=== PATIENT | male | born 1950 | race Caucasian/White ===

== ENCOUNTER 2017-08-03 10:25 | Emergency (ER) | payer MEDICARE, OTHER ==
[~2017-08-03] VITALS: Ht 180.3 cm; Wt 113.5 kg
[~2017-08-03 10:25] MED LIST: ALLO300T2 PO; CORE25TA PO; DIAZ5 PO; METF1000 PO; METO25 PO; NAPR-576 PO; NOVO7030P2 SQ; OMEG100037 PO; PARO20 PO; PERC5TAB12 PO; SAW500CA6 PO
[2017-08-03 10:27] VITALS: BP 167/82; PULSE 86; RESP 16; TEMP 98.4; O2SAT 95
--- NOTE | 2017-08-03 11:18 | PD ---
HPI Chief Complaint: Abnormal Results Time Seen by Provider: 11:17 Travel History International Travel<30 days: No Contact w/Intl Traveler<30days: No Traveled to known affect area: No History of Present Illness HPI 67-year-old male presents to emergency department for evaluation. Patient states he has had epigastric abdominal pain, nausea, vomiting, decreased appetite over the last 3 days. He had lab work done last week and was told that he has "critically high liver enzymes." Patient has never been told that he has liver disease of any sort. Denies any recent illnesses, fever, or chills. Pain is an 8 out of 10. Denies any bowel or bladder changes. No chest pain or tightness. No difficulty breathing. No other symptoms to report. PFSH Past Medical History Cancer: No Cardiovascular Problems: Yes (IRREGULAR BEAT ) Diabetes: Yes Endocrine: Yes Gastrointestinal Disorders: No Genitourinary: No Hepatitis: No Hiatal Hernia: No Hypertension: Yes Immune Disorder: No Musculoskeletal: Yes (ARTHRITIS; HX BACK RECONSTRUCTION; GOUTY ARTHRITIS) Neurologic: No Psychiatric: Yes (ANXIETY) Respiratory: No Thyroid Disease: No Past Surgical History Abdominal Surgery: Yes (INCISED FOR LUMBAR SURGERIES LISTED BELOW ) AICD: No Body Medical Devices: 13 SCREWS; 2 RODS, AND 1 PLATE SPINE, BILATERAL LENS Cardiac Surgery: No Ear Surgery: No Eye Surgery: Yes (BILATERAL CATARACT EXTRACTION WITH LENS IMPLANT) Genitourinary Surgery: Yes (LITHOTRIPSY X 4 FOR KIDNEY STONES) Joint Replacement: No Neurologic Surgery: Yes (LUMBAR DISKECTOMY (5); SPINAL FUSION 2007) Oral Surgery: No Pacemaker: No Thoracic Surgery: No Other Surgery: Yes Social History Alcohol Use: No Tobacco Use: No Substance Use: No Allergies-Medications (Allergen,Severity, Reaction): Coded Allergies: No Known Allergies (Unverified Allergy, Unknown, 08/03/17) Reported Meds & Prescriptions Reported Meds & Active Scripts Active Zofran Odt (Ondansetron Odt) 4 Mg Tab 4 Mg SL Q8HR PRN Reported Atorvastatin (Atorvastatin Calcium) 10 Mg Tab 10 Mg PO HS Coq-10 (Coenzyme Q10 (Ubidecarenone)) 30 Mg Cap Novolin N Inj (Insulin Human NPH) 1,000 Unit/10 Ml Vial 0 SQ DIRECTED Sliding Scale As Directed. Novolin R Inj (Insulin Human Regular) 1,000 Unit/10 Ml Vial 0 SQ DIRECTED Sliding Scale As Directed. Metoprolol Tartrate 25 Mg Tab 25 Mg PO BID Fish Oil + D3 (Fish Oil-Cholecalciferol) 1,200-1,000 Mg-Unit Cap 1 Cap PO DAILY [place] ([place]) 450 Mg Cap 450 Mg PO DAILY Metformin (Metformin HCl) 1,000 Mg Tab 1,000 Mg PO BIDPC Carvedilol 25 Mg Tab 25 Mg BID Allopurinol 300 Mg Tab 300 Mg PO DAILY Review of Systems Except as stated in HPI: all other systems reviewed are Neg Physical Exam Narrative GENERAL: Well-nourished male patient in no acute distress SKIN: Focused skin assessment warm/dry. HEAD: Atraumatic. Normocephalic. EYES: Pupils equal and round. Slight scleral icterus. No injection or drainage. ENT: No nasal bleeding or discharge. Mucous membranes pink and moist. NECK: Trachea midline. No JVD. CARDIOVASCULAR: Regular rate and rhythm. No murmur appreciated. RESPIRATORY: No accessory muscle use. Diminished, likely due to girth,. Breath sounds equal bilaterally. GASTROINTESTINAL: Rotund, soft, epigastric tenderness.. Hepatic and splenic margins not palpable. MUSCULOSKELETAL: No obvious deformities. No clubbing. No cyanosis. No edema. NEUROLOGICAL: Awake and alert. No obvious cranial nerve deficits. Motor grossly within normal limits. Normal speech. PSYCHIATRIC: Appropriate mood and affect; insight and judgment normal. Data Data Last Documented VS Vital Signs Date Time Temp Pulse Resp B/P (MAP) Pulse Ox O2 Delivery O2 Flow Rate FiO2 08/03/17 16:07 87 153/85 (107) 98 08/03/17 11:31 Room Air 08/03/17 10:27 98.4 16 Orders Orders Complete Blood Count With Diff (08/03/17 11:22) Comprehensive Metabolic Panel (08/03/17 11:22) Lipase (08/03/17 11:22) Prothrombin Time / Inr (Pt) (08/03/17 11:22) Act Partial Throm Time (Ptt) (08/03/17 11:22) Urinalysis - C+S If Indicated (08/03/17 11:22) Ct Abd/Pel W Iv Contrast(Rout) (08/03/17 11:22) Iv Access Insert/Monitor (08/03/17 11:22) Ecg Monitoring (08/03/17 11:22) Oximetry (08/03/17 11:22) Ondansetron Inj (Zofran Inj) (08/03/17 11:30) Sodium Chlor 0.9% 1000 Ml Inj (Ns 1000 M (08/03/17 11:22) Sodium Chloride 0.9% Flush (Ns Flush) (08/03/17 11:30) Electrocardiogram (08/03/17 11:22) Ketorolac Inj (Toradol Inj) (08/03/17 11:30) Ckmb (Isoenzyme) Profile (08/03/17 11:22) Troponin I (08/03/17 11:22) CKMB (08/03/17 11:28) CKMB% (08/03/17 11:28) Iohexol 350 Inj (Omnipaque 350 Inj) (08/03/17 13:09) Ammonia (08/03/17 14:15) Ed Discharge Order (08/03/17 15:37) Labs Laboratory Tests Test 08/03/17 11:28 08/03/17 13:58 08/03/17 14:28 White Blood Count 6.0 TH/MM3 Red Blood Count 4.62 MIL/MM3 Hemoglobin 14.4 GM/DL Hematocrit 42.3 % Mean Corpuscular Volume 91.5 FL Mean Corpuscular Hemoglobin 31.2 PG Mean Corpuscular Hemoglobin Concent 34.1 % Red Cell Distribution Width 14.1 % Platelet Count 170 TH/MM3 Mean Platelet Volume 9.3 FL Neutrophils (%) (Auto) 73.5 % Lymphocytes (%) (Auto) 12.7 % Monocytes (%) (Auto) 9.9 % Eosinophils (%) (Auto) 3.7 % Basophils (%) (Auto) 0.2 % Neutrophils # (Auto) 4.4 TH/MM3 Lymphocytes # (Auto) 0.8 TH/MM3 Monocytes # (Auto) 0.6 TH/MM3 Eosinophils # (Auto) 0.2 TH/MM3 Basophils # (Auto) 0.0 TH/MM3 CBC Comment DIFF FINAL Differential Comment Prothrombin Time 11.0 SEC Prothromb Time International Ratio 1.1 RATIO Activated Partial Thromboplast Time 28.3 SEC Blood Urea Nitrogen 14 MG/DL Creatinine 1.19 MG/DL Random Glucose 207 MG/DL Total Protein 7.3 GM/DL Albumin 3.2 GM/DL Calcium Level 8.8 MG/DL Alkaline Phosphatase 223 U/L Aspartate Amino Transf (AST/SGOT) 155 U/L Alanine Aminotransferase (ALT/SGPT) 216 U/L Total Bilirubin 5.6 MG/DL Sodium Level 133 MEQ/L Potassium Level 4.0 MEQ/L Chloride Level 99 MEQ/L Carbon Dioxide Level 28.7 MEQ/L Anion Gap 5 MEQ/L Estimat Glomerular Filtration Rate 61 ML/MIN Total Creatine Kinase 166 U/L Creatine Kinase MB 1.5 NG/ML Troponin I LESS THAN 0.02 NG/ML Lipase 219 U/L Urine Color DARK-YELLOW Urine Turbidity CLEAR Urine pH 6.5 Urine Specific [place] 1.049 Urine Protein 30 mg/dL Urine Glucose (UA) 1000 mg/dL Urine Ketones TRACE mg/dL Urine Occult Blood NEG Urine Nitrite NEG Urine Bilirubin MOD Urine Urobilinogen 4.0 MG/DL Urine Leukocyte Esterase NEG Urine RBC 4 /hpf Urine WBC 3 /hpf Urine Squamous Epithelial Cells <1 /hpf Urine Bacteria RARE /hpf Microscopic Urinalysis Comment CULT NOT INDICATED Ammonia 17 MCMOL/L MDM Medical Decision Making Medical Screen Exam Complete: Yes Emergency Medical Condition: Yes Medical Record Reviewed: Yes Differential Diagnosis Oley cystitis versus pancreatitis versus hepatitis versus biliary colic Narrative Course 67-year-old male presents to emergency department for evaluation of elevated liver enzymes and abdominal pain. Patient appears without distress. His abdomen is rotund. He does have epigastric right upper quadrant tenderness to palpation. He has mild scleral icterus. He appears nontoxic. Laboratory Tests Test 08/03/17 11:28 08/03/17 13:58 08/03/17 14:28 White Blood Count 6.0 TH/MM3 Red Blood Count 4.62 MIL/MM3 Hemoglobin 14.4 GM/DL Hematocrit 42.3 % Mean Corpuscular Volume 91.5 FL Mean Corpuscular Hemoglobin 31.2 PG Mean Corpuscular Hemoglobin Concent 34.1 % Red Cell Distribution Width 14.1 % Platelet Count 170 TH/MM3 Mean Platelet Volume 9.3 FL Neutrophils (%) (Auto) 73.5 % Lymphocytes (%) (Auto) 12.7 % Monocytes (%) (Auto) 9.9 % Eosinophils (%) (Auto) 3.7 % Basophils (%) (Auto) 0.2 % Neutrophils # (Auto) 4.4 TH/MM3 Lymphocytes # (Auto) 0.8 TH/MM3 Monocytes # (Auto) 0.6 TH/MM3 Eosinophils # (Auto) 0.2 TH/MM3 Basophils # (Auto) 0.0 TH/MM3 CBC Comment DIFF FINAL Differential Comment Prothrombin Time 11.0 SEC Prothromb Time International Ratio 1.1 RATIO Activated Partial Thromboplast Time 28.3 SEC Blood Urea Nitrogen 14 MG/DL Creatinine 1.19 MG/DL Random Glucose 207 MG/DL Total Protein 7.3 GM/DL Albumin 3.2 GM/DL Calcium Level 8.8 MG/DL Alkaline Phosphatase 223 U/L Aspartate Amino Transf (AST/SGOT) 155 U/L Alanine Aminotransferase (ALT/SGPT) 216 U/L Total Bilirubin 5.6 MG/DL Sodium Level 133 MEQ/L Potassium Level 4.0 MEQ/L Chloride Level 99 MEQ/L Carbon Dioxide Level 28.7 MEQ/L Anion Gap 5 MEQ/L Estimat Glomerular Filtration Rate 61 ML/MIN Total Creatine Kinase 166 U/L Creatine Kinase MB 1.5 NG/ML Troponin I LESS THAN 0.02 NG/ML Lipase 219 U/L Urine Color DARK-YELLOW Urine Turbidity CLEAR Urine pH 6.5 Urine Specific [place] 1.049 Urine Protein 30 mg/dL Urine Glucose (UA) 1000 mg/dL Urine Ketones TRACE mg/dL Urine Occult Blood NEG Urine Nitrite NEG Urine Bilirubin MOD Urine Urobilinogen 4.0 MG/DL Urine Leukocyte Esterase NEG Urine RBC 4 /hpf Urine WBC 3 /hpf Urine Squamous Epithelial Cells <1 /hpf Urine Bacteria RARE /hpf Microscopic Urinalysis Comment CULT NOT INDICATED Ammonia 17 MCMOL/L Last Impressions Abdomen/Pelvis CT 08/03/17 1122 Signed Impressions: Service Date/Time: Thursday, August 03, 2017 13:05 - CONCLUSION: Previous surgeries as above. Prominent gallbladder possible small stone otherwise negative. Mp Emerson MD FACR Patient does have a transaminitis. Bilirubin is 5.6. CT imaging is reviewed. Discussed the patient and the findings with my attending who is also assess the patient. Patient will be discharged to follow-up with gastroenterology. He agrees to return immediately with any acute worsening of symptoms. Diagnosis Primary Impression: Transaminitis Additional Impression: Hyperbilirubinemia Referrals: Klaus Benton MD Primary Care Physician Patient Instructions: Abdominal Pain (ED), General Instructions Additional Instructions: Follow-up with your primary care provider Seek gastroenterology evaluation for further evaluation and your elevated liver enzymes Return immediately to the emergency department with any acute worsening of symptoms Med/Other Pt SpecificInfo: Prescription(s) given Scripts Ondansetron Odt (Zofran Odt) 4 Mg Tab 4 MG SL Q8HR Y for Nausea/Vomiting, #10 TAB 0 Refills Prov: Cherrie Cota 08/03/17 Disposition: 01 DISCHARGE HOME Condition: Stable Cherrie Cota Aug 03, 2017 11:18
[2017-08-03] MEDS ORDERED: SODIUM CHLOR 0.9% 1000 ML INJ 1,000 ML IV SCH (11:22)
[2017-08-03] MEDS ORDERED: ONDANSETRON HCL 4 MG/2 ML VIAL IVP ONE (11:30)
[2017-08-03] MEDS ORDERED: KETOROLAC TROMETHAMINE 30 MG/ML (IVP) VIAL IVP ONE (11:30)
[2017-08-03] MEDS ORDERED: SODIUM CHLORIDE 0.9% FLUSH 10 ML FLUSH IV FLUSH PRN (11:30)
[2017-08-03] MEDS ORDERED: NOVORP2 SQ (11:30)
[2017-08-03] MEDS ORDERED: NOVONP2 SQ (11:30)
[2017-08-03] MEDS ORDERED: FISHCAP4 PO (11:30)
[2017-08-03] MEDS ORDERED: ATOR10TA15 PO (11:30)
[2017-08-03] MEDS ORDERED: METF1000 PO (11:30)
[2017-08-03] MEDS ORDERED: METO25TA3 PO (11:30)
[2017-08-03] MEDS ORDERED: SAW450CA2 PO (11:30)
[2017-08-03] MEDS ORDERED: COQ-30CA2 (11:30)
[2017-08-03] MEDS ORDERED: CARV25TA (11:30)
[2017-08-03] MEDS ORDERED: ALLO300T2 PO (11:30)
[2017-08-03 11:31] VITALS: O2SAT 98
[2017-08-03 11:55] LABS: AUTOMATED NEUTROPHIL # 4.4 TH/MM3 (1.8-7.7); BASOPHIL % 0.2 % (0.0-2.0); EOSINOPHIL # 0.2 TH/MM3 (0-0.4); EOSINOPHIL % 3.7 % (0.0-4.0); HEMATOCRIT 42.3 % (39.0-51.0); HEMOGLOBIN 14.4 GM/DL (13.0-17.0); LYMPH % 12.7 % (9.0-44.0); LYMPHOCYTE # 0.8 TH/MM3 (1.0-4.8); MEAN CELL VOLUME 91.5 FL (80.0-100.0); MEAN CORPUSCULAR HEMOGLOBIN 31.2 PG (27.0-34.0); MEAN CORPUSCULAR HGB CONC 34.1 % (32.0-36.0); MEAN PLATELET VOLUME 9.3 FL (7.0-11.0); MONO % 9.9 % (0.0-8.0); MONOCYTE # 0.6 TH/MM3 (0-0.9); NEUT % 73.5 % (16.0-70.0); PLATELET COUNT 170 TH/MM3 (150-450); RED BLOOD COUNT 4.62 MIL/MM3 (4.50-5.90); RED CELL DISTRIBUTION WIDTH 14.1 % (11.6-17.2)
[2017-08-03 12:04] LABS: INTERNATIONAL NORMALIZED RATIO 1.1 RATIO
[2017-08-03 12:21] LABS: ALBUMIN 3.2 GM/DL (3.4-5.0); ALT (GPT) 216 U/L (12-78); AST (GOT) 155 U/L (15-37); BICARBONATE 28.7 MEQ/L (21.0-32.0); BLOOD UREA NITROGEN 14 MG/DL (7-18); CALCIUM 8.8 MG/DL (8.5-10.1); CHLORIDE 99 MEQ/L (98-107); CREATININE 1.19 MG/DL (0.60-1.30); GLOMERULAR FILTRATION RATE 61 ML/MIN (>89); GLUCOSE,RANDOM 207 MG/DL (74-106); SODIUM (NA) 133 MEQ/L (136-145)
[2017-08-03 12:24] LABS: ALKALINE PHOSPHATASE 223 U/L (45-117); TOTAL BILIRUBIN ADULT 5.6 MG/DL (0.2-1.0); TOTAL PROTEIN 7.3 GM/DL (6.4-8.2); TROPONIN I LESS THAN 0.02 NG/ML (0.02-0.05)
[2017-08-03] MEDS ORDERED: IOHEXOL 350 MG/ML 10 ML VIAL (for RAD DIAG) IVCONTRAST ONE (13:09)
--- NOTE | 2017-08-03 13:20 | RADRPT ---
EXAM DATE/TIME: 08/03/2017 13:05 [facility] COMPARISON: No previous studies available for comparison. INDICATIONS : Right upper quadrant pain for a few days. IV CONTRAST: 94 cc Omnipaque 350 (iohexol) IV ORAL CONTRAST: No oral contrast ingested. RADIATION DOSE: 14.74 CTDIvol (mGy) MEDICAL HISTORY : None SURGICAL HISTORY : Previous hernia surgery, spine fixation. ENCOUNTER: Initial ACUITY: 3 days PAIN SCALE: 3/10 LOCATION: Right upper quadrant TECHNIQUE: Volumetric scanning of the abdomen and pelvis was performed. Using automated exposure control and ad justment of the mA and/or kV according to patient size, radiation dose was kept as low as reasonably achievable to obtain optimal diagnostic quality images. DICOM format image data is available electro nically for review and comparison. FINDINGS: The lung base is are clear. Moderate coronary calcifications are noted with stent in the LAD. The liver is free of focal defects The gallbladder contains the small stone. No inflammatory change is evident The pancreas and spleen are unremarkable Adrenal glands appear normal There is mild perinephric stranding without stone or obstruction Pelvis are previous hernia surgery . Translumbar fixation seen in the lumbar spine Pelvis diverticuli are present sigmoid colon Bladder prostate and simple vesicles unremarkable There is notable adenopathy Patient also had what looks like it lymph node dissection as well. CONCLUSION: Previous surgeries as above. Prominent gallbladder possible small stone otherwise negative. Mp Emerson MD FACR on August 03, 2017 at 13:15 Board Certified Radiologist. This report was verified electronically.
--- NOTE | 2017-08-03 13:24 | PD ---
Physical Exam Date Seen by Provider: Aug 03, 2017 Narrative Patient presents with upper abdominal pain. He states that he has had outpatient labs which indicate problems with his liver. Data Data Last Documented VS Vital Signs Date Time Temp Pulse Resp B/P (MAP) Pulse Ox O2 Delivery O2 Flow Rate FiO2 08/03/17 11:31 98 Room Air 08/03/17 10:27 98.4 86 16 Orders Orders Complete Blood Count With Diff (08/03/17 11:22) Comprehensive Metabolic Panel (08/03/17 11:22) Lipase (08/03/17 11:22) Prothrombin Time / Inr (Pt) (08/03/17 11:22) Act Partial Throm Time (Ptt) (08/03/17 11:22) Urinalysis - C+S If Indicated (08/03/17 11:) Ct Abd/Pel W Iv Contrast(Rout) (08/03/17 11:22) Iv Access Insert/Monitor (08/03/17 11:22) Ecg Monitoring (08/03/17 11:22) Oximetry (08/03/17 11:22) Ondansetron Inj (Zofran Inj) (08/03/17 11:30) Sodium Chlor 0.9% 1000 Ml Inj (Ns 1000 M (08/03/17 11:22) Sodium Chloride 0.9% Flush (Ns Flush) (08/03/17 11:30) Electrocardiogram (08/03/17 11:22) Ketorolac Inj (Toradol Inj) (08/03/17 11:30) Ckmb (Isoenzyme) Profile (08/03/17 11:22) Troponin I (08/03/17 11:22) CKMB (08/03/17 11:28) CKMB% (08/03/17 11:28) Iohexol 350 Inj (Omnipaque 350 Inj) (08/03/17 13:09) Labs Laboratory Tests Test 08/03/17 11:28 White Blood Count 6.0 TH/MM3 Red Blood Count 4.62 MIL/MM3 Hemoglobin 14.4 GM/DL Hematocrit 42.3 % Mean Corpuscular Volume 91.5 FL Mean Corpuscular Hemoglobin 31.2 PG Mean Corpuscular Hemoglobin Concent 34.1 % Red Cell Distribution Width 14.1 % Platelet Count 170 TH/MM3 Mean Platelet Volume 9.3 FL Neutrophils (%) (Auto) 73.5 % Lymphocytes (%) (Auto) 12.7 % Monocytes (%) (Auto) 9.9 % Eosinophils (%) (Auto) 3.7 % Basophils (%) (Auto) 0.2 % Neutrophils # (Auto) 4.4 TH/MM3 Lymphocytes # (Auto) 0.8 TH/MM3 Monocytes # (Auto) 0.6 TH/MM3 Eosinophils # (Auto) 0.2 TH/MM3 Basophils # (Auto) 0.0 TH/MM3 CBC Comment DIFF FINAL Differential Comment Prothrombin Time 11.0 SEC Prothromb Time International Ratio 1.1 RATIO Activated Partial Thromboplast Time 28.3 SEC Blood Urea Nitrogen 14 MG/DL Creatinine 1.19 MG/DL Random Glucose 207 MG/DL Total Protein 7.3 GM/DL Albumin 3.2 GM/DL Calcium Level 8.8 MG/DL Alkaline Phosphatase 223 U/L Aspartate Amino Transf (AST/SGOT) 155 U/L Alanine Aminotransferase (ALT/SGPT) 216 U/L Total Bilirubin 5.6 MG/DL Sodium Level 133 MEQ/L Potassium Level 4.0 MEQ/L Chloride Level 99 MEQ/L Carbon Dioxide Level 28.7 MEQ/L Anion Gap 5 MEQ/L Estimat Glomerular Filtration Rate 61 ML/MIN Total Creatine Kinase 166 U/L Creatine Kinase MB 1.5 NG/ML Troponin I LESS THAN 0.02 NG/ML Lipase 219 U/L MDM Supervised Visit with ROSEMARY: Yes Narrative Course I, Dr. Suarez, have reviewed the advance practice practitioner's documentation and am in agreement, met with the patient face to face, made the diagnosis, and the medical decision making was done by me. *My assessment and Findings: The patient looks comfortable. His abdomen is soft. He does have right upper quadrant and epigastric tenderness. Please see Cherrie Cota NP's note for results of laboratory and radiographic evaluation, ED course, final diagnosis and disposition Marjorie Suarez MD Aug 03, 2017 13:24
[2017-08-03 14:40] LABS: BACTERIA, URINE RARE /hpf; BILIRUBIN, URINE MOD (NEG); BLOOD, URINE NEG (NEG); GLUCOSE,URINE 1000 mg/dL (NEG); KETONE, URINE TRACE mg/dL (NEG); NITRITE,URINE NEG (NEG); PH, URINE 6.5 (5.0-8.5); SQUAMOUS EPITHELIAL CELL URINE <1 /hpf (0-5); URINE COLOR DARK-YELLOW (YELLW/STRAW); URINE LEUKOCYTE ESTERASE NEG (NEG)
[2017-08-03] MEDS ORDERED: ZOFR4TAB3 SL (15:40)
[2017-08-03 16:07] VITALS: BP 153/85
--- NOTE | 2017-08-04 14:31 | EKG ---
Date Performed: 08/03/2017 Time Performed: 11:27:11 PTAGE: 67 years EKG: Sinus rhythm MINIMAL VOLTAGE CRITERIA FOR LVH, CONSIDER NORMAL VARIANT BORDERLINE ECG NO PREVIOUS TRACING DOCTOR: Owen Kilgore Interpretating Date/Time 08/04/2017 14:28:34
== END 2017-08-03 16:30 | disposition home or self-care (01) ==
LOC: NEPE 10:25
DX: R74.0 Nonspecific elevation of levels of transaminase and lactic acid dehydrogenase [LDH] (principal); E80.6 Other disorders of bilirubin metabolism; I10 Essential (primary) hypertension; M19.90 Unspecified osteoarthritis, unspecified site; M10.9 Gout, unspecified; E11.9 Type 2 diabetes mellitus without complications; Z79.4 Long term (current) use of insulin; Z79.84 Long term (current) use of oral hypoglycemic drugs; Z79.899 Other long term (current) drug therapy
CPT/HCPCS: 74177; 80053; 81001; 82140; 82550; 82552; 83690; 84484; 85025; 85610; 85730; 93005; 96361; 96374; 96375; 99284; J1885; J2405; J7030; Q9967

== ENCOUNTER 2017-08-05 10:59 | Inpatient (IN) | payer MEDICARE ==
[2017-08-05] VITALS (8 sets, daily range): BP systolic 126–165; BP diastolic 68–91; PULSE 65–76; RESP 16–18; TEMP 97.2–98.1; O2SAT 96–99
[~2017-08-05] VITALS: Ht 177.8 cm; Wt 111.2 kg
[~2017-08-05 10:59] MED LIST changes: +ATOR10TA15 PO; +CARV25TA; +COQ-30CA2; -CORE25TA PO; -DIAZ5 PO; +FISHCAP4 PO; -METO25 PO; +METO25TA3 PO; -NAPR-576 PO; -NOVO7030P2 SQ; +NOVONP2 SQ; +NOVORP2 SQ; -OMEG100037 PO; -PARO20 PO; -PERC5TAB12 PO; +SAW450CA2 PO; -SAW500CA6 PO; +ZOFR4TAB3 SL
[2017-08-05] MEDS ORDERED: SODIUM CHLOR 0.9% 1000 ML INJ 1,000 ML IV SCH (11:23)
[2017-08-05] MEDS ORDERED: MORPHINE SULFATE 4 MG/ML INJ IV PUSH ONE (11:30)
[2017-08-05] MEDS ORDERED: SODIUM CHLORIDE 0.9% FLUSH 10 ML FLUSH IV FLUSH PRN (11:30)
[2017-08-05] MEDS ORDERED: PIPERACIL-TAZO 3.375 GM PREMIX 50 ML IV ONE (11:30)
[2017-08-05] MEDS ORDERED: ONDANSETRON HCL 4 MG/2 ML VIAL IVP ONE (11:30)
--- NOTE | 2017-08-05 11:38 | PD ---
HPI Chief Complaint: Abdominal Pain Time Seen by Provider: 11:17 Travel History International Travel<30 days: No Contact w/Intl Traveler<30days: No Traveled to known affect area: No History of Present Illness HPI Patient is a 67-year-old male presenting to the emergency department for evaluation of abdominal pain. Patient reports the pain started Tuesday, he states that he feels itchy, nauseated, fatigued. He reports subjective fevers and his pain is currently a 3/10, worse with movement. Symptom severity is moderate, onset was gradual. Symptoms are exacerbated with food. Pain is reported as aching and throbbing. Patient was seen by his GI doctor this morning and sent to emergency department for obstructive jaundice with cholangitis. Pain is localized to the right upper quadrant. PFSH Past Medical History Cancer: No Cardiovascular Problems: Yes Diabetes: Yes Patient Takes Glucophage: No Endocrine: Yes Gastrointestinal Disorders: No Genitourinary: No Hepatitis: No Hiatal Hernia: No Hypertension: Yes Immune Disorder: No Musculoskeletal: Yes (ARTHRITIS; HX BACK RECONSTRUCTION; GOUTY ARTHRITIS) Neurologic: No Psychiatric: Yes (ANXIETY) Respiratory: No Thyroid Disease: No Past Surgical History Abdominal Surgery: Yes (INCISED FOR LUMBAR SURGERIES LISTED BELOW ) AICD: No Body Medical Devices: 13 SCREWS; 2 RODS, AND 1 PLATE SPINE, BILATERAL LENS Cardiac Surgery: No Ear Surgery: No Eye Surgery: Yes (BILATERAL CATARACT EXTRACTION WITH LENS IMPLANT) Genitourinary Surgery: Yes (LITHOTRIPSY X 4 FOR KIDNEY STONES) Joint Replacement: No Neurologic Surgery: Yes (LUMBAR DISKECTOMY (5); SPINAL FUSION 2007) Oral Surgery: No Pacemaker: No Thoracic Surgery: No Other Surgery: Yes Social History Alcohol Use: No Tobacco Use: No Substance Use: No Allergies-Medications (Allergen,Severity, Reaction): Coded Allergies: No Known Allergies (Unverified Allergy, Unknown, 08/05/17) Reported Meds & Prescriptions Reported Meds & Active Scripts Active Zofran Odt (Ondansetron Odt) 4 Mg Tab 4 Mg SL Q8HR PRN Reported Atorvastatin (Atorvastatin Calcium) 10 Mg Tab 10 Mg PO HS Coq-10 (Coenzyme Q10 (Ubidecarenone)) 30 Mg Cap Novolin N Inj (Insulin Human NPH) 1,000 Unit/10 Ml Vial 0 SQ DIRECTED Sliding Scale As Directed. Novolin R Inj (Insulin Human Regular) 1,000 Unit/10 Ml Vial 0 SQ DIRECTED Sliding Scale As Directed. Metoprolol Tartrate 25 Mg Tab 25 Mg PO BID Fish Oil + D3 (Fish Oil-Cholecalciferol) 1,200-1,000 Mg-Unit Cap 1 Cap PO DAILY Saw [place] (Sertrella Repens) 450 Mg Cap 450 Mg PO DAILY Metformin (Metformin HCl) 1,000 Mg Tab 1,000 Mg PO BIDPC Carvedilol 25 Mg Tab 25 Mg BID Allopurinol 300 Mg Tab 300 Mg PO DAILY Review of Systems Except as stated in HPI: all other systems reviewed are Neg General / Constitutional: Positive: Fever Cardiovascular: No: Chest Pain or Discomfort Respiratory: No: Shortness of Breath Gastrointestinal: Positive: Nausea, Abdominal Pain, Loss of Appetite, No: Vomiting, Changes in Bowel Habits Skin: Positive Itching, Positive Change in Pigmentation Neurologic: Positive: Weakness Physical Exam Narrative GENERAL: Overweight, well-developed, alert male. Presenting in no acute distress. SKIN: Warm and dry. Appears jaundiced HEAD: Atraumatic. Normocephalic. EYES: Pupils equal and round. + scleral icterus. No injection or drainage. Extraocular movements are intact. ENT: No nasal bleeding or discharge. Mucous membranes pink and moist. NECK: Trachea midline. No JVD. CARDIOVASCULAR: Regular rate and rhythm. RESPIRATORY: No accessory muscle use. Clear to auscultation. Breath sounds equal bilaterally. GASTROINTESTINAL: Abdomen soft, non-tender, nondistended. Hepatic and splenic margins not palpable. MUSCULOSKELETAL: Extremities without clubbing, cyanosis, or edema. No obvious deformities. NEUROLOGICAL: Awake and alert. No obvious cranial nerve deficits. Motor grossly within normal limits. Five out of 5 muscle strength in the arms and legs. Normal speech. PSYCHIATRIC: Appropriate mood and affect; insight and judgment normal. Data Data Last Documented VS Vital Signs Date Time Temp Pulse Resp B/P (MAP) Pulse Ox O2 Delivery O2 Flow Rate FiO2 08/05/17 11:40 97 Room Air 08/05/17 11:03 98.1 74 16 Orders Orders Complete Blood Count With Diff (08/05/17 11:23) Comprehensive Metabolic Panel (08/05/17 11:23) Lipase (08/05/17 11:23) Prothrombin Time / Inr (Pt) (08/05/17 11:23) Act Partial Throm Time (Ptt) (08/05/17 11:23) Urinalysis - C+S If Indicated (08/05/17 11:23) Us Abdomen Gallbladder (08/05/17 ) Iv Access Insert/Monitor (08/05/17 11:23) Ecg Monitoring (08/05/17 11:23) Oximetry (08/05/17 11:23) NPO (08/05/17 11:23) Morphine Inj (Morphine Inj) (08/05/17 11:30) Ondansetron Inj (Zofran Inj) (08/05/17 11:30) Sodium Chlor 0.9% 1000 Ml Inj (Ns 1000 M (08/05/17 11:23) Sodium Chloride 0.9% Flush (Ns Flush) (08/05/17 11:30) Gamma Gt (Ggt) (08/05/17 11:23) Piperacil-Tazo 3.375 Gm Premix (Zosyn 3. (08/05/17 11:30) Admit To Inpatient (08/05/17 ) Code Status (08/05/17 12:59) Vital Signs (Adult) Q4H (08/05/17 12:59) Activity Oob With Assistance (08/05/17 12:59) Sodium Chloride 0.9% Flush (Ns Flush) (08/05/17 13:00) Sodium Chloride 0.9% Flush (Ns Flush) (08/05/17 21:00) Acetaminophen (Tylenol) (08/05/17 13:00) Ondansetron Inj (Zofran Inj) (08/05/17 13:00) Comprehensive Metabolic Panel (08/06/17 06:00) Complete Blood Count With Diff (08/06/17 06:00) Chest, Single Ap (08/05/17 12:59) Electrocardiogram (08/05/17 12:59) Pt Request For Service (08/05/17 12:59) Scd Bilateral/Knee High NEETA.BID (08/05/17 12:59) Naloxone Inj (Narcan Inj) (08/05/17 13:00) Magnesium Hydroxide Liq (Milk Of Magnesi (08/05/17 13:00) Inpatient Certification (08/05/17 ) Consult General Surgery (08/05/17 ) Consult Gastroenterology (08/05/17 ) Mri Mrcp W & W/O Contrast (08/05/17 ) Ns + Kcl 20 Meq Inj (Ns + Kcl 20 Meq Inj (08/05/17 14:00) Dextrose 50% In [place] (Syr) Inj (D50w (Syr (08/05/17 13:15) Allopurinol (Zyloprim) (08/06/17 09:00) Carvedilol (Coreg) (08/05/17 21:00) Dextrose 50% In [place] (Syr) Inj (D50w (Syr (08/05/17 13:12) Lisinopril (Prinivil) (08/06/17 09:00) Pantoprazole Inj (Protonix Inj) (08/05/17 13:15) Diet Npo Except Meds (08/05/17 Lunch) (Hub Use Only)Inp Phy Cons/Ref (08/05/17 ) Admit Order (Ed Use Only) (08/05/17 13:19) Labs Laboratory Tests Test 08/05/17 11:37 White Blood Count 4.9 TH/MM3 Red Blood Count 4.63 MIL/MM3 Hemoglobin 14.6 GM/DL Hematocrit 41.8 % Mean Corpuscular Volume 90.4 FL Mean Corpuscular Hemoglobin 31.5 PG Mean Corpuscular Hemoglobin Concent 34.8 % Red Cell Distribution Width 13.9 % Platelet Count 189 TH/MM3 Mean Platelet Volume 9.1 FL Neutrophils (%) (Auto) 59.5 % Lymphocytes (%) (Auto) 23.9 % Monocytes (%) (Auto) 11.6 % Eosinophils (%) (Auto) 4.2 % Basophils (%) (Auto) 0.8 % Neutrophils # (Auto) 2.9 TH/MM3 Lymphocytes # (Auto) 1.2 TH/MM3 Monocytes # (Auto) 0.6 TH/MM3 Eosinophils # (Auto) 0.2 TH/MM3 Basophils # (Auto) 0.0 TH/MM3 CBC Comment DIFF FINAL Differential Comment Prothrombin Time 9.7 SEC Prothromb Time International Ratio 1.0 RATIO Activated Partial Thromboplast Time 27.3 SEC Blood Urea Nitrogen 13 MG/DL Creatinine 0.87 MG/DL Random Glucose 111 MG/DL Total Protein 7.0 GM/DL Albumin 2.9 GM/DL Calcium Level 9.0 MG/DL Alkaline Phosphatase 251 U/L Aspartate Amino Transf (AST/SGOT) 75 U/L Alanine Aminotransferase (ALT/SGPT) 113 U/L Gamma Glutamyl Transpeptidase 1325 U/L Total Bilirubin 4.3 MG/DL Sodium Level 135 MEQ/L Potassium Level 3.9 MEQ/L Chloride Level 102 MEQ/L Carbon Dioxide Level 26.0 MEQ/L Anion Gap 7 MEQ/L Estimat Glomerular Filtration Rate 88 ML/MIN Lipase 308 U/L MDM Medical Decision Making Medical Screen Exam Complete: Yes Emergency Medical Condition: Yes Medical Record Reviewed: Yes Interpretation(s) Vital Signs Date Time Temp Pulse Resp B/P (MAP) Pulse Ox O2 Delivery O2 Flow Rate FiO2 08/05/17 11:03 98.1 74 16 126/77 (93) 97 Room Air Differential Diagnosis Metabolic abnormality versus obstructive jaundice versus cholecystitis versus other Narrative Course Patient is a 67-year-old male presenting to the emergency department on the advice of his GI doctor, he is uncertain which physician he saw this morning. Labs and imaging ordered and pending. Patient will be given Zosyn prophylactically. He was given morphine and Zofran for pain. Patient placed on playground monitor, continuous pulse oximetry, IV access established. CBC is unremarkable Chemistry with an elevated AST/ALT 75/113, GGT 1325, lipase 308 Coags are unremarkable Ultrasound of the gallbladder shows cholelithiasis along with mild gallbladder wall thickening and reported positive sonographic Monique's are suspicious for acute gallbladder inflammation and/or obstruction. Mild hepatomegaly with state ptosis. Patient was Zosyn 1 dose. Patient reported to RN that he felt as if his blood sugar was getting low, blood glucose assessed at 61. Patient was given D50 IV. [facility] paged for admission. Dr. Williamson discussed with Dr. Almaraz who placed admit orders. Diagnosis Primary Impression: Cholecystitis with cholangitis Admitting Information Admitting Physician Requests: Admit Condition: Stable Keysha Carrington Batsheva GUADALUPE Aug 05, 2017 11:38
[2017-08-05 12:08] LABS: AUTOMATED NEUTROPHIL # 2.9 TH/MM3 (1.8-7.7); BASOPHIL % 0.8 % (0.0-2.0); EOSINOPHIL # 0.2 TH/MM3 (0-0.4); EOSINOPHIL % 4.2 % (0.0-4.0); HEMATOCRIT 41.8 % (39.0-51.0); HEMOGLOBIN 14.6 GM/DL (13.0-17.0); LYMPH % 23.9 % (9.0-44.0); LYMPHOCYTE # 1.2 TH/MM3 (1.0-4.8); MEAN CELL VOLUME 90.4 FL (80.0-100.0); MEAN CORPUSCULAR HEMOGLOBIN 31.5 PG (27.0-34.0); MEAN CORPUSCULAR HGB CONC 34.8 % (32.0-36.0); MEAN PLATELET VOLUME 9.1 FL (7.0-11.0); MONO % 11.6 % (0.0-8.0); MONOCYTE # 0.6 TH/MM3 (0-0.9); NEUT % 59.5 % (16.0-70.0); PLATELET COUNT 189 TH/MM3 (150-450); RED BLOOD COUNT 4.63 MIL/MM3 (4.50-5.90); RED CELL DISTRIBUTION WIDTH 13.9 % (11.6-17.2); WHITE BLOOD COUNT 4.9 TH/MM3 (4.0-11.0)
[2017-08-05 12:14] LABS: PROTHROMBIN TIME - PATIENT 9.7 SEC (9.8-11.6)
[2017-08-05 12:27] LABS: ALKALINE PHOSPHATASE 251 U/L (45-117); GAMMA GT 1325 U/L (15-85); TOTAL BILIRUBIN ADULT 4.3 MG/DL (0.2-1.0)
[2017-08-05 12:45] LABS: ALBUMIN 2.9 GM/DL (3.4-5.0); ALT (GPT) 113 U/L (12-78); AST (GOT) 75 U/L (15-37); BLOOD UREA NITROGEN 13 MG/DL (7-18); CHLORIDE 102 MEQ/L (98-107); CREATININE 0.87 MG/DL (0.60-1.30); GLOMERULAR FILTRATION RATE 88 ML/MIN (>89); GLUCOSE,RANDOM 111 MG/DL (74-106); SODIUM (NA) 135 MEQ/L (136-145)
--- NOTE | 2017-08-05 12:47 | RADRPT ---
EXAM DATE/TIME: 08/05/2017 11:43 [facility] COMPARISON: CT ABDOMEN & PELVIS W CONTRAST, August 03, 2017, 13:05. INDICATIONS : Right upper quadrant pain. MEDICAL HISTORY : Hypertension. Renal calculi. Arthritis. Diabetes. Anxiety. SURGICAL HISTORY : Bialteral cataract extractions with lens implants. Lumbar diskectomy. Spinal fusion. Lithotripsy x4. Left tendon release ring finger. ENCOUNTER: Initial ACUITY: 3 days PAIN SCORE: 9/10 LOCATION: Right upper quadrant MEASUREMENTS: LIVER: 21.1 cm length COMMON DUCT: 5 mm RIGHT KIDNEY: 14.8 x 6 x 7.5 cm FINDINGS: LIVER: Mild increased echotexture without focal lesion or ductal dilatation. COMMON DUCT: No intraluminal mass or stone visualized. GALLBLADDER: There are multiple stones in the gallbladder measuring up to 18 mm. Mild gallbladder wall thickening is present. Principal Law Clerk reports a positive sonographic Monique sign. There is no pericholecystic fluid . PANCREAS: The visualized portions are within normal limits. RIGHT KIDNEY: No evidence of hydronephrosis, stone, or mass. CONCLUSION: 1. Cholelithiasis, along with mild gallbladder wall thickening and reported positive sonographic Murp hy's are suspicious for acute gallbladder inflammation and/or obstruction. 2. Mild hepatomegaly with steatosis. Sukhjinder Xavier MD on August 05, 2017 at 12:36 Board Certified Radiologist. This report was verified electronically.
[2017-08-05] MEDS ORDERED: ONDANSETRON HCL 4 MG/2 ML VIAL IVP PRN (13:00)
[2017-08-05] MEDS ORDERED: ACETAMINOPHEN 325 MG TAB PO PRN (13:00)
[2017-08-05] MEDS ORDERED: NALOXONE HCL 0.4 MG/ML AMP IV PUSH PRN (13:00)
[2017-08-05] MEDS ORDERED: DEXTROSE 50% IN WATER 50 ML SYRINGE ONE (13:12)
[2017-08-05] MEDS ORDERED: DEXTROSE 50% IN WATER 50 ML SYRINGE IV PUSH ONE (13:15)
--- NOTE | 2017-08-05 13:29 | HHI.HP ---
HPI Service [facility] Hospitalists Primary Care Physician Zita Sierra MD Admission Diagnosis abd pain, abnormal labs send by MD Chief Complaint: abnormal labs and RUQ pain Travel History International Travel<30 Days: No Contact w/Intl Traveler <30 Da: No Traveled to Known Affected Are: No History of Present Illness This is a 67 year old male patient with a past medical history which includes BPH, DM, gout, HTN and Hyperlipidemia. Patient was seen in the ER 08/03/17 for elevated liver enzymes and DC home. Patient again presents to the ER today sent by outpatient GI Dr. Moore. Patient reports the aching and throbbing type abdominal pain worse RUQ and worse after eating. Patient admits that this pain has been intermitted over the past few month bu has gotten progressively worse over the past week. Patient reports that Tuesday after eating he has severe RUQ abdominal pain assocated with bloating and nausea. Since Tuesday he has not eating much as eating makes his symtpoms worse. Patient has also noticed generalized itching, dark urine and light colored stools. He reports subjective fevers. Review of Systems Constitutional: COMPLAINS OF: Fatigue, Fever Gastrointestinal: COMPLAINS OF: Abdominal pain Past Family Social History Past Medical History BPH, DM, gout, HTN and Hyperlipidemia. Past Surgical History cataract surgery, Laryngoscopy with excision of non-neoplastic lesion, repair of trigger finger, laparoscopic repair of incisional hernia, laparoscopic repair of ventral hernia, Lumbar vertebral fusion Reported Medications Zofran Odt (Ondansetron Odt) 4 Mg Tab 4 Mg SL Q8HR PRN Atorvastatin (Atorvastatin Calcium) 10 Mg Tab 10 Mg PO HS Coq-10 (Coenzyme Q10 (Ubidecarenone)) 30 Mg Cap Novolin N Inj (Insulin Human NPH) 1,000 Unit/10 Ml Vial 0 SQ DIRECTED Sliding Scale As Directed. Novolin R Inj (Insulin Human Regular) 1,000 Unit/10 Ml Vial 0 SQ DIRECTED Sliding Scale As Directed. Metoprolol Tartrate 25 Mg Tab 25 Mg PO BID Fish Oil + D3 (Fish Oil-Cholecalciferol) 1,200-1,000 Mg-Unit Cap 1 Cap PO DAILY Saw [place] ([place]renoa Repens) 450 Mg Cap 450 Mg PO DAILY Metformin (Metformin HCl) 1,000 Mg Tab 1,000 Mg PO BIDPC Carvedilol 25 Mg Tab 25 Mg BID Allopurinol 300 Mg Tab 300 Mg PO DAILY Allergies: Coded Allergies: No Known Allergies (Unverified Allergy, Unknown, 08/05/17) Family History Noncontributory Social History Former tobacco use, none currently denies ETOH use or illicit drug use Physical Exam Vital Signs Vital Signs Date Time Temp Pulse Resp B/P (MAP) Pulse Ox O2 Delivery O2 Flow Rate FiO2 08/05/17 11:40 97 Room Air 08/05/17 11:03 98.1 74 16 126/77 (93) 97 Room Air Physical Exam GENERAL: This is a well-nourished, well-developed patient, in no apparent distress. HEAD: Atraumatic. Normocephalic. No temporal or scalp tenderness. EYES: Extraocular motions intact. positive scleral icterus. CARDIOVASCULAR: Regular rate and rhythm RESPIRATORY: Clear to auscultation. Breath sounds equal bilaterally. GASTROINTESTINAL: Abdomen soft, tender right upper quadrant, nondistended. No hepato-splenomegaly, or palpable masses. No guarding. MUSCULOSKELETAL: Extremities without clubbing, cyanosis, or edema. No joint tenderness, effusion, or edema noted. No calf tenderness. Negative Homans sign bilaterally. NEUROLOGICAL: Awake and alert. Cranial nerves II through XII intact. Motor and sensory grossly within normal limits. Five out of 5 muscle strength in all muscle groups. Normal speech. Laboratory Laboratory Tests Test 08/05/17 11:37 White Blood Count 4.9 Red Blood Count 4.63 Hemoglobin 14.6 Hematocrit 41.8 Mean Corpuscular Volume 90.4 Mean Corpuscular Hemoglobin 31.5 Mean Corpuscular Hemoglobin Concent 34.8 Red Cell Distribution Width 13.9 Platelet Count 189 Mean Platelet Volume 9.1 Neutrophils (%) (Auto) 59.5 Lymphocytes (%) (Auto) 23.9 Monocytes (%) (Auto) 11.6 Eosinophils (%) (Auto) 4.2 Basophils (%) (Auto) 0.8 Neutrophils # (Auto) 2.9 Lymphocytes # (Auto) 1.2 Monocytes # (Auto) 0.6 Eosinophils # (Auto) 0.2 Basophils # (Auto) 0.0 CBC Comment DIFF FINAL Differential Comment Prothrombin Time 9.7 Prothromb Time International Ratio 1.0 Activated Partial Thromboplast Time 27.3 Blood Urea Nitrogen 13 Creatinine 0.87 Random Glucose 111 Total Protein 7.0 Albumin 2.9 Calcium Level 9.0 Alkaline Phosphatase 251 Aspartate Amino Transf (AST/SGOT) 75 Alanine Aminotransferase (ALT/SGPT) 113 Gamma Glutamyl Transpeptidase 1325 Total Bilirubin 4.3 Sodium Level 135 Potassium Level 3.9 Chloride Level 102 Carbon Dioxide Level 26.0 Anion Gap 7 Estimat Glomerular Filtration Rate 88 Lipase 308 Result Diagram: 08/05/17 1137 08/05/17 1137 Imaging Last Impressions Gall Bladder Ultrasound 08/05/17 0000 Signed Impressions: Service Date/Time: Saturday, August 05, 2017 11:43 - CONCLUSION: 1. Cholelithiasis, along with mild gallbladder wall thickening and reported positive sonographic Monique's are suspicious for acute gallbladder inflammation and/or obstruction. 2. Mild hepatomegaly with steatosis. MD Tyler Mccoy VTE Risk Assessment Tyler VTE Risk Assessment: No/Low Risk (score <= 1) Caprini Risk Assessment Model Point Value = 1 Point Value = 2 Point Value = 3 Point Value = 5 Age 41-60 Minor surgery BMI > 25 kg/m2 Swollen legs Varicose veins or History of unexplained or recurrent spontaneous Oral contraceptives or hormone replacement Sepsis (< 1 month) Serious lung disease, including pneumonia (< 1 month) Abnormal pulmonary function Acute myocardial infarction Congestive heart failure (< 1 month) History of inflammatory bowel disease Medical patient at bed rest Age 61-74 Arthroscopic surgery Major open surgery (> 45 min) Laparoscopic surgery (> 45 min) Malignancy Confined to bed (> 72 hours) Immobilizing plaster cast Central venous access Age >= 75 History of VTE Family history of VTE Factor V Leiden Prothrombin [id number] Lupus anticoagulant Anticardiolipin antibodies Elevated serum homocysteine Heparin-induced thrombocytopenia Other congenital or acquired thrombophilia Stroke (< 1 month) Elective arthroplasty Hip, pelvis, or leg fracture Acute spinal cord injury (< 1 month) Prophylaxis Regimen Total Risk Factor Score Risk Level Prophylaxis Regimen 0-1 Low Early ambulation 2 Moderate Order ONE of the following: *Sequential Compression Device (SCD) *Heparin 5000 units SQ BID 3-4 Higher Order ONE of the following medications: *Heparin 5000 units SQ TID *Enoxaparin/Lovenox 40 mg SQ daily (WT < 150 kg, CrCl > 30 mL/min) *Enoxaparin/Lovenox 30 mg SQ daily (WT < 150 kg, CrCl > 10-29 mL/min) *Enoxaparin/Lovenox 30 mg SQ BID (WT < 150 kg, CrCl > 30 mL/min) AND/OR *Sequential Compression Device (SCD) 5 or more Highest Order ONE of the following medications: *Heparin 5000 units SQ TID (Preferred with Epidurals) *Enoxaparin/Lovenox 40 mg SQ daily (WT < 150 kg, CrCl > 30 mL/min) *Enoxaparin/Lovenox 30 mg SQ daily (WT < 150 kg, CrCl > 10-29 mL/min) *Enoxaparin/Lovenox 30 mg SQ BID (WT < 150 kg, CrCl > 30 mL/min) AND *Sequential Compression Device (SCD) Assessment and Plan Problem List: (1) Transaminitis ICD Codes: R74.0 - Nonspecific elevation of levels of transaminase and lactic acid dehydrogenase [LDH] Plan: Concerning for Cholelithiasis Patient present to the ER from outpatient MD office Total bilirubin 4.3, GGT 1325, AST 75, ALT 113, Alk Phos 251 US gallbladder reveals: Cholelithiasis along with gallbladder wall thickening and reports positive sonographic Monique's sign suspicious for acute gallbladder inflammation and/or obstruction. Mild hepatomegaly with steatosis discussed case with General surgery Dr. Winchester who request GI consult and MRCP Consult General surgery Consult GI MRCP Patient started on Zosyn in the ER, will continue NPO, with IV fluids for hydration Morphine as needed for pain (2) Diabetes mellitus ICD Codes: E11.9 - Type 2 diabetes mellitus without complications Plan: Patient taking Novolin N 32 units with breakfast and 36 Units with dinner , as well as SSI with Novolin R and metformin. Will hold at this time Patient NPO Accu checks ACHS with SSI coverage Patient having hypoglycemia, hypoglycemia protocol ordered adn IVF changed to D5NS at 84ml/H (3) HTN (hypertension) ICD Codes: I10 - Essential (primary) hypertension Plan: Patient takes Lisinopril 10 mg daily and coreg 25 mg PO BID, will continue monitor BP (4) Hyperlipidemia ICD Codes: E78.5 - Hyperlipidemia, unspecified Plan: Will hold statin at this time given elevated liver enzymes Assessment and Plan Patient examined. Assessment and plan formulated with Eladia Yeung PA-C. I agree with the above. Pt c/o abdominal pain following eating for many months. Increasing abdominal pain for last several week, and decreasing PO intake. Pt c/o generalized pruritus. MRCP (08/05/17) --> no biliary obstruction indicated. Await review by GI and General Surgery. Repeat CBC, CMP in AM. Eladia Yeung Aug 05, 2017 13:29 David Almaraz DO Aug 05, 2017 23:55
--- NOTE | 2017-08-05 13:38 | RADRPT ---
EXAM DATE/TIME: 08/05/2017 13:11 [facility] COMPARISON: No previous studies available for comparison. INDICATIONS : Short of breath, right upper quadrant pain MEDICAL HISTORY : Hypertension. Cholelithiasis. Renal calculi. diabetic SURGICAL HISTORY : spinal fusion ENCOUNTER: Initial ACUITY: 3 days PAIN SCORE: 9/10 LOCATION: Bilateral chest FINDINGS: Bibasilar parenchymal changes worse on the left. Cardiomegaly with mild interstitial edema. The port ion of the bony skeleton visualized is unremarkable. CONCLUSION: Minimal clinical changes left base. Mild interstitial edema. Mp Emerson MD FACR on August 05, 2017 at 13:24 Board Certified Radiologist. This report was verified electronically.
[2017-08-05] MEDS ORDERED: NS + KCL 20 MEQ INJ 1,000 ML IV SCH (14:00)
--- NOTE | 2017-08-05 14:14 | PD.CONS ---
HPI History of Present Illness This is a 67 year old male referred by Dr Moore after being seen in the office with nausea, vomiting, jaundice, RUQ pain. Onset 5-6 days ago. he is also having dark urine. Tuesday pt had "attack" where he feels his upper quadrant swelled up and he had to stop the car and was SOB. He has had problems with his gallbladder before, cites RUQ pain a month ago that subsided for a couple weeks and then started again this past week. He had colonoscopy year ago normal per pt. (Tran Gonzales) PFSH Past Medical History DM HTN Past Surgical History hernia repair back surgery, fusion (Tran Gonzales) Coded Allergies: No Known Allergies (Unverified Allergy, Unknown, 08/05/17) Family History CVD Social History no etoh no tobacco no illicit drugs (Tran Gonzales) Review of Systems Constitutional: COMPLAINS OF: Fever Eyes: DENIES: Blurred vision Ears, nose, mouth, throat: DENIES: Hearing loss Respiratory: DENIES: Cough Cardiovascular: DENIES: Chest pain Gastrointestinal: COMPLAINS OF: Abdominal pain, Nausea, Vomiting Genitourinary: DENIES: Urinary incontinence Musculoskeletal: DENIES: Joint Swelling Integumentary: COMPLAINS OF: Jaundice Hematologic/lymphatic: DENIES: Bruising Immunologic/allergic: DENIES: Eczema Psychiatric: DENIES: Confusion (Tran Gonzales) GI Exam Vitals I&O Vital Signs Date Time Temp Pulse Resp B/P (MAP) Pulse Ox O2 Delivery O2 Flow Rate FiO2 08/05/17 13:00 76 18 137/68 (91) 96 Room Air 08/05/17 12:00 72 18 146/83 (104) 96 Room Air 08/05/17 11:40 97 Room Air 08/05/17 11:03 98.1 74 16 126/77 (93) 97 Room Air I/O 08/04/17 08/04/17 08/04/17 08/05/17 08/05/17 08/05/17 07:00 15:00 23:00 07:00 15:00 23:00 Intake Total 100 ml Balance 100 ml Intake IV Total 100 ml Imaging Last Impressions Chest X-Ray 08/05/17 2931 Signed Impressions: Service Date/Time: Saturday, August 05, 2017 13:11 - CONCLUSION: Minimal clinical changes left base. Mild interstitial edema. Mp Emerson MD FACR Gall Bladder Ultrasound 08/05/17 0000 Signed Impressions: Service Date/Time: Saturday, August 05, 2017 11:43 - CONCLUSION: 1. Cholelithiasis, along with mild gallbladder wall thickening and reported positive sonographic Monique's are suspicious for acute gallbladder inflammation and/or obstruction. 2. Mild hepatomegaly with steatosis. Sukhjinder Xavier MD Laboratory Test 08/05/17 11:37 White Blood Count 4.9 TH/MM3 Red Blood Count 4.63 MIL/MM3 Hemoglobin 14.6 GM/DL Hematocrit 41.8 % Mean Corpuscular Volume 90.4 FL Mean Corpuscular Hemoglobin 31.5 PG Mean Corpuscular Hemoglobin Concent 34.8 % Red Cell Distribution Width 13.9 % Platelet Count 189 TH/MM3 Mean Platelet Volume 9.1 FL Neutrophils (%) (Auto) 59.5 % Lymphocytes (%) (Auto) 23.9 % Monocytes (%) (Auto) 11.6 % Eosinophils (%) (Auto) 4.2 % Basophils (%) (Auto) 0.8 % Neutrophils # (Auto) 2.9 TH/MM3 Lymphocytes # (Auto) 1.2 TH/MM3 Monocytes # (Auto) 0.6 TH/MM3 Eosinophils # (Auto) 0.2 TH/MM3 Basophils # (Auto) 0.0 TH/MM3 CBC Comment DIFF FINAL Differential Comment Prothrombin Time 9.7 SEC Prothromb Time International Ratio 1.0 RATIO Activated Partial Thromboplast Time 27.3 SEC Blood Urea Nitrogen 13 MG/DL Creatinine 0.87 MG/DL Random Glucose 111 MG/DL Total Protein 7.0 GM/DL Albumin 2.9 GM/DL Calcium Level 9.0 MG/DL Alkaline Phosphatase 251 U/L Aspartate Amino Transf (AST/SGOT) 75 U/L Alanine Aminotransferase (ALT/SGPT) 113 U/L Gamma Glutamyl Transpeptidase 1325 U/L Total Bilirubin 4.3 MG/DL Sodium Level 135 MEQ/L Potassium Level 3.9 MEQ/L Chloride Level 102 MEQ/L Carbon Dioxide Level 26.0 MEQ/L Anion Gap 7 MEQ/L Estimat Glomerular Filtration Rate 88 ML/MIN Lipase 308 U/L Physical Examination HEENT: PERRL; normocephalic; atraumatic; no jaundice. CHEST: CTA CARDIAC: RRR ABDOMEN: Soft, Obese, upper quadrant TTP > RUQ; bowel sounds are present in all four quadrants. EXTREMITIES: No clubbing, cyanosis, or edema. SKIN: Normal; no rash; no jaundice. TELEPHONE WORKER: No focal deficits; alert and oriented times three. (Tran Gonzales) Assessment and Plan Plan ASSESSMENT - abd pain, elevated LFTs, abnormal imaging - pt with RUQ pain, n/v, LFTs elevated obstructive pattern. US showed cholelithiasis, pos murphys sign, suggestive GB inflammation or obstruction. looks like cholecystitis but will get MRCP r/o choledocholithiasis PLAN - await MRCP - await GS consult - monitor LFTs - NPO for now - further recs to follow pt seen by myself and Dr Valerio ayala this note is written on his behalf (Tran Gonzales) Physician Comments Patient seen and examined Agree with above Continue with current supportive care Monitor labs MRCP unremarkable for biliary obstruction This is a case of acute cholecystitis We'll await surgical evaluation (Klaus Benton MD) Tran Gonzales Aug 05, 2017 14:14 Klaus Benton MD Aug 05, 2017 19:29
--- NOTE | 2017-08-05 15:50 | RADRPT ---
EXAM DATE/TIME: 08/05/2017 14:30 [facility] COMPARISON: US ABDOMEN - GALLBLADDER, August 05, 2017, 11:43. INDICATIONS : Pain. MEDICAL HISTORY : Hypertension. Arthritis. Diabetes. SURGICAL HISTORY : Discectomy, lumbar. Fusion, lumbar. Cataracts. Lithotripsy. Left hand. Hernia repair. ENCOUNTER: Subsequent ACUITY: 1 day PAIN SCORE: 5/10 LOCATION: Abdomen. TECHNIQUE: Multiplanar, multisequence magnetic resonance imaging of the abdomen was performed. High-resolution 3D dataset was utilized to reconstruct maximum-intensity projection (MIP) images. FINDINGS: INTRAHEPATIC BILE DUCTS: Within normal limits. No significant anatomical variant is present. EXTRAHEPATIC BILE DUCTS: The common bile duct measures 5 mm No stone or filling defect is identified. GALLBLADDER: Multiple gallstones again noted in the gallbladder. No significant gallbladder wall thickening. Very trace pericholecystic fluid. LIVER: Liver is enlarged measuring up to 18 cm in length. No concerning liver lesion is identified on this n on-contrast exam. PANCREAS: The main pancreatic duct is normal in size. There is no significant anatomical variant. Signal inte nsity is within normal limits. No mass is visualized on this non-contrast exam. OTHER: The remaining visualized structures demonstrate no acute abnormality on this non-contrast exam. CONCLUSION: 1. Cholelithiasis with very trace pericholecystic fluid. Cystic duct patency is difficult to definiti vely verify on MRCP examination. HIDA scan may be performed if there is continued clinical concern re garding cholecystitis and cystic duct obstruction. 2. No bile duct dilatation or CBD stone/focal abnormality. 3. Mild hepatomegaly with steatosis. Sonu Alston MD on August 05, 2017 at 15:14 Board Certified Radiologist. This report was verified electronically.
[2017-08-05] MEDS: DEXT 5%-NACL 0.9% 1000 ML INJ 1,000 ML IV SCH (16:00)
[2017-08-05] MEDS ORDERED: DEXTROSE 50% IN WATER 50 ML VIAL(D50) IV PUSH PRN (16:00)
[2017-08-05] MEDS ORDERED: GLUCAGON 1 MG/ML VIAL OTHER PRN (16:00)
[2017-08-05] MEDS: PANTOPRAZOLE SODIUM 40 MG VIAL IV PUSH SCH (16:03)
[2017-08-05] MEDS: INSULIN ASPART SUPPLEMENTAL SCALE SQ SCH ×2 (16:57→20:58)
[2017-08-05] MEDS ORDERED: hydrOXYzine HCL 25 MG TAB PO ONE (17:30)
[2017-08-05] MEDS: PIPERACIL-TAZO 3.375 GM PREMIX 50 ML IV SCH (18:00)
[2017-08-05] MEDS: MORPHINE SULFATE 2 MG/ML INJ IV PUSH PRN (20:59)
[2017-08-05] MEDS: SODIUM CHLORIDE 0.9% FLUSH 10 ML FLUSH IV FLUSH SCH (20:59)
[2017-08-05] MEDS: CARVEDILOL 12.5 MG TAB PO SCH (20:59)
[2017-08-06] VITALS (7 sets, daily range): BP systolic 122–170; BP diastolic 61–88; PULSE 64–80; RESP 17–18; TEMP 97.8–98.4; O2SAT 95–96
[2017-08-06] MEDS: PIPERACIL-TAZO 3.375 GM PREMIX 50 ML IV SCH ×4 (00:12→17:22)
[2017-08-06] MEDS: hydrOXYzine HCL 25 MG TAB PO PRN ×3 (00:19→21:18)
[2017-08-06] MEDS: DEXT 5%-NACL 0.9% 1000 ML INJ 1,000 ML IV SCH (05:24)
[2017-08-06 06:12] LABS: AUTOMATED NEUTROPHIL # 2.9 TH/MM3 (1.8-7.7); BASOPHIL % 0.4 % (0.0-2.0); EOSINOPHIL # 0.3 TH/MM3 (0-0.4); EOSINOPHIL % 5.5 % (0.0-4.0); HEMATOCRIT 40.3 % (39.0-51.0); HEMOGLOBIN 13.7 GM/DL (13.0-17.0); LYMPH % 22.5 % (9.0-44.0); LYMPHOCYTE # 1.1 TH/MM3 (1.0-4.8); MEAN CELL VOLUME 91.5 FL (80.0-100.0); MEAN CORPUSCULAR HEMOGLOBIN 31.2 PG (27.0-34.0); MEAN CORPUSCULAR HGB CONC 34.1 % (32.0-36.0); MEAN PLATELET VOLUME 8.8 FL (7.0-11.0); MONO % 12.3 % (0.0-8.0); MONOCYTE # 0.6 TH/MM3 (0-0.9); NEUT % 59.3 % (16.0-70.0); PLATELET COUNT 183 TH/MM3 (150-450); RED CELL DISTRIBUTION WIDTH 14.1 % (11.6-17.2); WHITE BLOOD COUNT 4.8 TH/MM3 (4.0-11.0)
[2017-08-06 06:35] LABS: ALBUMIN 2.5 GM/DL (3.4-5.0); AST (GOT) 71 U/L (15-37); BICARBONATE 26.1 MEQ/L (21.0-32.0); BLOOD UREA NITROGEN 9 MG/DL (7-18); CALCIUM 8.7 MG/DL (8.5-10.1); CHLORIDE 102 MEQ/L (98-107); CREATININE 1.01 MG/DL (0.60-1.30); GLOMERULAR FILTRATION RATE 74 ML/MIN (>89); GLUCOSE,RANDOM 153 MG/DL (74-106); SODIUM (NA) 138 MEQ/L (136-145)
[2017-08-06 06:46] LABS: ALKALINE PHOSPHATASE 223 U/L (45-117); ALT (GPT) 93 U/L (12-78); FREE T4 1.16 NG/DL (0.76-1.46); TOTAL BILIRUBIN ADULT 3.8 MG/DL (0.2-1.0); TOTAL PROTEIN 6.1 GM/DL (6.4-8.2)
[2017-08-06] MEDS: INSULIN ASPART SUPPLEMENTAL SCALE SQ SCH ×4 (08:00→21:00)
[2017-08-06] MEDS: CARVEDILOL 12.5 MG TAB PO SCH ×2 (08:47→21:06)
[2017-08-06] MEDS: ALLOPURINOL 300 MG TAB PO SCH (08:48)
[2017-08-06] MEDS: MORPHINE SULFATE 2 MG/ML INJ IV PUSH PRN ×3 (09:00→21:18)
[2017-08-06] MEDS ORDERED: LISINOPRIL 10 MG TAB PO SCH (09:00)
[2017-08-06] MEDS: SODIUM CHLORIDE 0.9% FLUSH 10 ML FLUSH IV FLUSH SCH ×2 (09:00→21:00)
--- NOTE | 2017-08-06 11:18 | PD.CONS ---
HPI Service General Surgery Consult Requested By Dr. Almaraz Reason for Consult cholecystitis Primary Care Physician Zita Sierra MD History of Present Illness 67 yo M presents c/o jaundice and right upper quadrant abdominal pain. For one month he has had intermittent rigors, jaundice, upper abdominal and RUQ pain, and bloating. He has not been able to eat much. He saw his PCP who sent him to the ED on Tuesday where he had elevated LFTs with bilirubin of 5.6 but was sent home. He went to see GI yesterday where he was noted to be jaundiced and sent to ED by ambulance. He again had elevated LFTs and u/s shows multiple gallstones. MRCP has been performed showing no stones in the common duct. He is feeling hungry today and feels much better than he did the last few days. PSH includes midline incision for anterior exposure for long lumbar fusion, and subsequent ventral hernia (7x9cm) repair with mesh (15x20 cm ) in [address] Franco. Review of Systems Constitutional: COMPLAINS OF: Fever, Chills, Change in appetite Eyes: DENIES: Eye inflammation, Eye pain Respiratory: DENIES: Cough, Shortness of breath Cardiovascular: DENIES: Chest pain, Palpitations Gastrointestinal: COMPLAINS OF: Abdominal pain, Nausea Genitourinary: DENIES: Hematuria, Dysuria Musculoskeletal: COMPLAINS OF: Back pain Integumentary: COMPLAINS OF: Pruritus, DENIES: Rash Neurologic: DENIES: Localized weakness, Seizures Past Family Social History Past Medical History Obesity Diabetes mellitus BPH Gout HTN Hyperlipidemia Past Surgical History Anterior exposure for lumbar fusion Lumbar fusion Lap ventral hernia repair with mesh Reported Medications Reported Meds & Active Scripts Active Zofran Odt (Ondansetron Odt) 4 Mg Tab 4 Mg SL Q8HR PRN Reported Atorvastatin (Atorvastatin Calcium) 10 Mg Tab 10 Mg PO HS Coq-10 (Coenzyme Q10 (Ubidecarenone)) 30 Mg Cap Novolin N Inj (Insulin Human NPH) 1,000 Unit/10 Ml Vial 0 SQ DIRECTED Sliding Scale As Directed. Novolin R Inj (Insulin Human Regular) 1,000 Unit/10 Ml Vial 0 SQ DIRECTED Sliding Scale As Directed. Metoprolol Tartrate 25 Mg Tab 25 Mg PO BID Fish Oil + D3 (Fish Oil-Cholecalciferol) 1,200-1,000 Mg-Unit Cap 1 Cap PO DAILY [place] ([place]ren[place] Repens) 450 Mg Cap 450 Mg PO DAILY Metformin (Metformin HCl) 1,000 Mg Tab 1,000 Mg PO BIDPC Carvedilol 25 Mg Tab 25 Mg BID Allopurinol 300 Mg Tab 300 Mg PO DAILY Allergies: Coded Allergies: No Known Allergies (Unverified Allergy, Unknown, 08/05/17) Active Ordered Medications Current Medications Medications (Trade) Dose Ordered Sig/Kavin Route Start Time Stop Time Status Last Admin (NS Flush) 2 ml UNSCH PRN IV FLUSH 08/05/17 13:00 (NS Flush) 2 ml BID IV FLUSH 08/05/17 21:00 (Tylenol) 650 mg Q4H PRN PO 08/05/17 13:00 (Zofran Inj) 4 mg Q6H PRN IVP 08/05/17 13:00 (Narcan Inj) 0.4 mg UNSCH PRN IV PUSH 08/05/17 13:00 (Milk Of Magnesia Liq) 30 ml Q12H PRN PO 08/05/17 13:00 (Zyloprim) 300 mg DAILY PO 08/06/17 09:00 08/06/17 08:48 (Coreg) 25 mg BID PO 08/05/17 21:00 08/06/17 08:47 (Prinivil) 10 mg DAILY PO 08/06/17 09:00 08/06/17 08:47 (Protonix Inj) 40 mg Q24H IV PUSH 08/05/17 14:00 08/05/17 16:03 (Morphine Inj) 2 mg Q3H PRN IV PUSH 08/05/17 13:30 08/06/17 09:00 Piperacillin Sod/ Tazobactam Sod 50 ml @ 100 mls/hr Q6H IV 08/05/17 18:00 08/06/17 05:22 (D50w (Vial) Inj) 50 ml UNSCH PRN IV PUSH 08/05/17 16:00 08/05/17 16:03 (Glucagon Inj) 1 mg UNSCH PRN OTHER 08/05/17 16:00 (NovoLOG SUPPLEMENTAL SCALE) 1 ACHS SLIDING SCALE SQ 08/05/17 17:00 Dextrose/Sodium Chloride 1,000 ml @ 84 mls/hr [id number] IV 08/05/17 16:00 08/06/17 05:24 (Atarax) 25 mg Q6H PRN PO 08/05/17 16:45 08/06/17 10:10 Family History Noncontributory Social History Former tobacco use, none currently denies ETOH use or illicit drug use Physical Exam Vital Signs Vital Signs Date Time Temp Pulse Resp B/P (MAP) Pulse Ox O2 Delivery O2 Flow Rate FiO2 08/06/17 07:55 97.8 70 18 151/81 (104) 96 08/06/17 04:40 98.2 80 17 133/62 (85) 95 08/06/17 04:00 64 08/06/17 00:00 98.1 67 17 122/61 (81) 95 08/05/17 23:58 65 08/05/17 21:06 67 08/05/17 21:00 97.9 72 18 165/ 96 08/05/17 17:39 08/05/17 15:30 97.2 65 18 162/91 (114) 99 08/05/17 14:31 08/05/17 13:00 76 18 137/68 (91) 96 Room Air 08/05/17 12:00 72 18 146/83 (104) 96 Room Air 08/05/17 11:40 97 Room Air 08/05/17 11:03 98.1 74 16 126/77 (93) 97 Room Air Physical Exam GENERAL: Awake and alert. No acute distress. Cooperative. Morbid obesity HEAD: Normocephalic. Atraumatic. NECK: Trachea midline. CHEST: Lungs clear to auscultation bilaterally with no wheezing or rhonchi. No respiratory distress. CARDIOVASCULAR: Regular rate and rhythm. ABDOMEN: Round. Long midline scar. RUQ and epigastric moderate ttp, no rebound or guarding EXTREMITIES: No cyanosis or edema. SKIN: Warm, dry Laboratory Laboratory Tests Test 08/05/17 11:37 08/05/17 18:06 08/06/17 05:21 White Blood Count 4.9 4.8 Red Blood Count 4.63 4.40 Hemoglobin 14.6 13.7 Hematocrit 41.8 40.3 Mean Corpuscular Volume 90.4 91.5 Mean Corpuscular Hemoglobin 31.5 31.2 Mean Corpuscular Hemoglobin Concent 34.8 34.1 Red Cell Distribution Width 13.9 14.1 Platelet Count 189 183 Mean Platelet Volume 9.1 8.8 Neutrophils (%) (Auto) 59.5 59.3 Lymphocytes (%) (Auto) 23.9 22.5 Monocytes (%) (Auto) 11.6 12.3 Eosinophils (%) (Auto) 4.2 5.5 Basophils (%) (Auto) 0.8 0.4 Neutrophils # (Auto) 2.9 2.9 Lymphocytes # (Auto) 1.2 1.1 Monocytes # (Auto) 0.6 0.6 Eosinophils # (Auto) 0.2 0.3 Basophils # (Auto) 0.0 0.0 CBC Comment DIFF FINAL DIFF FINAL Differential Comment Prothrombin Time 9.7 Prothromb Time International Ratio 1.0 Activated Partial Thromboplast Time 27.3 Blood Urea Nitrogen 13 9 Creatinine 0.87 1.01 Random Glucose 111 153 Total Protein 7.0 6.1 Albumin 2.9 2.5 Calcium Level 9.0 8.7 Alkaline Phosphatase 251 223 Aspartate Amino Transf (AST/SGOT) 75 71 Alanine Aminotransferase (ALT/SGPT) 113 93 Gamma Glutamyl Transpeptidase 1325 Total Bilirubin 4.3 3.8 Sodium Level 135 138 Potassium Level 3.9 3.7 Chloride Level 102 102 Carbon Dioxide Level 26.0 26.1 Anion Gap 7 10 Estimat Glomerular Filtration Rate 88 74 Lipase 308 Ammonia LESS THAN 10 Free Thyroxine 1.16 Thyroid Stimulating Hormone 3rd Gen 1.100 Result Diagram: 08/06/17 0521 08/06/17 0521 Imaging Last Impressions Chest X-Ray 08/05/17 1259 Signed Impressions: Service Date/Time: Saturday, August 05, 2017 13:11 - CONCLUSION: Minimal clinical changes left base. Mild interstitial edema. Mp Emerson MD FACR Gall Bladder Ultrasound 08/05/17 0000 Signed Impressions: Service Date/Time: Saturday, August 05, 2017 11:43 - CONCLUSION: 1. Cholelithiasis, along with mild gallbladder wall thickening and reported positive sonographic Monique's are suspicious for acute gallbladder inflammation and/or obstruction. 2. Mild hepatomegaly with steatosis. Sukhjinder Xavier MD Cholangiopancreatography MRI 2/16/18 0000 Signed Impressions: Service Date/Time: Saturday, August 05, 2017 14:30 - CONCLUSION: 1. Cholelithiasis with very trace pericholecystic fluid. Cystic duct patency is difficult to definitively verify on MRCP examination. HIDA scan may be performed if there is continued clinical concern regarding cholecystitis and cystic duct obstruction. 2. No bile duct dilatation or CBD stone/focal abnormality. 3. Mild hepatomegaly with steatosis. Sonu Alston MD Assessment and Plan Assessment and Plan 67 yo morbidly obese male recurrent choledocholithiasis and cholangitis over the last month admitted with jaundice and RUQ pain. Gallstones and min pericholecystic fluid present, no CBD stones on MRCP. He likely recently passed another stone. Recommend recheck labs in am. Ok for low fat diet. Continue IV antibiotics. Possible laparoscopic cholecystectomy Tuesday or Tuesday. Case complicated by morbid obesity, prolonged period of time of gallbladder inflammation, and multiple previous abdominal surgeries including placement of large mesh. iSd Winchester MD Aug 06, 2017 11:18
--- NOTE | 2017-08-06 12:15 | HHI.GIFU ---
Subjective Remarks Pt resting in bed. Pain minimally improved. Going for lap myles next week. (Tran Gonzales) Objective Vitals I&O Vital Signs Date Time Temp Pulse Resp B/P (MAP) Pulse Ox O2 Delivery O2 Flow Rate FiO2 08/06/17 11:52 97.8 70 18 170/88 (115) 96 08/06/17 07:55 97.8 70 18 151/81 (104) 96 08/06/17 04:40 98.2 80 17 133/62 (85) 95 08/06/17 04:00 64 08/06/17 00:00 98.1 67 17 122/61 (81) 95 08/05/17 23:58 65 08/05/17 21:06 67 08/05/17 21:00 97.9 72 18 165/ 96 08/05/17 17:39 08/05/17 15:30 97.2 65 18 162/91 (114) 99 08/05/17 14:31 08/05/17 13:00 76 18 137/68 (91) 96 Room Air I/O 08/05/17 08/05/17 08/05/17 08/06/17 08/06/17 08/06/17 07:00 15:00 23:00 07:00 15:00 23:00 Intake Total 100 ml 728 ml 0 ml Balance 100 ml 728 ml 0 ml Intake Oral 480 ml 0 ml IV Total 100 ml 248 ml # Voids 3 2 # Bowel Movements 0 0 Laboratory Laboratory Tests Test 08/05/17 18:06 08/06/17 05:21 Ammonia LESS THAN 10 White Blood Count 4.8 Red Blood Count 4.40 Hemoglobin 13.7 Hematocrit 40.3 Mean Corpuscular Volume 91.5 Mean Corpuscular Hemoglobin 31.2 Mean Corpuscular Hemoglobin Concent 34.1 Red Cell Distribution Width 14.1 Platelet Count 183 Mean Platelet Volume 8.8 Neutrophils (%) (Auto) 59.3 Lymphocytes (%) (Auto) 22.5 Monocytes (%) (Auto) 12.3 Eosinophils (%) (Auto) 5.5 Basophils (%) (Auto) 0.4 Neutrophils # (Auto) 2.9 Lymphocytes # (Auto) 1.1 Monocytes # (Auto) 0.6 Eosinophils # (Auto) 0.3 Basophils # (Auto) 0.0 CBC Comment DIFF FINAL Differential Comment Blood Urea Nitrogen 9 Creatinine 1.01 Random Glucose 153 Total Protein 6.1 Albumin 2.5 Calcium Level 8.7 Alkaline Phosphatase 223 Aspartate Amino Transf (AST/SGOT) 71 Alanine Aminotransferase (ALT/SGPT) 93 Total Bilirubin 3.8 Sodium Level 138 Potassium Level 3.7 Chloride Level 102 Carbon Dioxide Level 26.1 Anion Gap 10 Estimat Glomerular Filtration Rate 74 Free Thyroxine 1.16 Thyroid Stimulating Hormone 3rd Gen 1.100 Imaging Last Impressions Chest X-Ray 08/05/17 1259 Signed Impressions: Service Date/Time: Saturday, August 05, 2017 13:11 - CONCLUSION: Minimal clinical changes left base. Mild interstitial edema. Mp Emerson MD FACR Gall Bladder Ultrasound 08/05/17 0000 Signed Impressions: Service Date/Time: Saturday, August 05, 2017 11:43 - CONCLUSION: 1. Cholelithiasis, along with mild gallbladder wall thickening and reported positive sonographic Monique's are suspicious for acute gallbladder inflammation and/or obstruction. 2. Mild hepatomegaly with steatosis. Sukhjinder Xavier MD Cholangiopancreatography MRI 08/05/17 0000 Signed Impressions: Service Date/Time: Saturday, August 05, 2017 14:30 - CONCLUSION: 1. Cholelithiasis with very trace pericholecystic fluid. Cystic duct patency is difficult to definitively verify on MRCP examination. HIDA scan may be performed if there is continued clinical concern regarding cholecystitis and cystic duct obstruction. 2. No bile duct dilatation or CBD stone/focal abnormality. 3. Mild hepatomegaly with steatosis. Sonu Alston MD Physical Exam HEENT: PERRL; normocephalic; atraumatic; + jaundice. CHEST: CTA CARDIAC: RRR ABDOMEN: Soft, obese,RUQ TTP; bowel sounds are present in all four quadrants. EXTREMITIES: No clubbing, cyanosis, or edema. SKIN: Normal; no rash;+ jaundice. TUBE PULLER: No focal deficits; alert and oriented times three. (Tran Gonzales FABRIC WORKER) Assessment and Plan Plan ASSESSMENT - abd pain, elevated LFTs, abnormal imaging - pt with RUQ pain, n/v, LFTs elevated obstructive pattern. US showed cholelithiasis, pos murphys sign, suggestive GB inflammation or obstruction. looks like cholecystitis but will get MRCP r/o choledocholithiasis 08/06/17 LFTs trending down. MRCP noted, no CBD obstruction looks like acute cholecystitis. GS following, plans for lap myles next week and he is on low fat diet now. PLAN - diet per GS - monitor LFTs - await lap myles - f/u with GI after d/c - GI will sign off, please reconsult if needed pt seen by myself and Dr Hogue and this note is written on her behalf (Tran Gonzales) Physician Comments seen, examined agree with above no indication of cbd stone -recommend introp cholangiogram fatty liver -consider liver biopsy during cholecystectomy if ok with surgery gi will sign off call us as needed if dc fu office (Deepali Hogue MD) Tran Gonzales Aug 06, 2017 12:15 Deepali Hogue MD Aug 06, 2017 17:37
--- NOTE | 2017-08-06 14:22 | HHI.PR ---
Subjective Remarks Less itchy today. Objective Vitals Vital Signs Date Time Temp Pulse Resp B/P (MAP) Pulse Ox O2 Delivery O2 Flow Rate FiO2 08/06/17 11:52 97.8 70 18 170/88 (115) 96 08/06/17 07:55 97.8 70 18 151/81 (104) 96 08/06/17 04:40 98.2 80 17 133/62 (85) 95 08/06/17 04:00 64 08/06/17 00:00 98.1 67 17 122/61 (81) 95 08/05/17 23:58 65 08/05/17 21:06 67 08/05/17 21:00 97.9 72 18 165/ 96 08/05/17 17:39 08/05/17 15:30 97.2 65 18 162/91 (114) 99 08/05/17 14:31 Result Diagram: 08/06/17 0521 08/06/17 0521 Imaging Last Impressions Chest X-Ray 08/05/17 1259 Signed Impressions: Service Date/Time: Saturday, August 05, 2017 13:11 - CONCLUSION: Minimal clinical changes left base. Mild interstitial edema. Mp Emerson MD FACR Gall Bladder Ultrasound 08/05/17 0000 Signed Impressions: Service Date/Time: Saturday, August 05, 2017 11:43 - CONCLUSION: 1. Cholelithiasis, along with mild gallbladder wall thickening and reported positive sonographic Monique's are suspicious for acute gallbladder inflammation and/or obstruction. 2. Mild hepatomegaly with steatosis. Sukhjinder Xavier MD Cholangiopancreatography MRI 08/05/17 0000 Signed Impressions: Service Date/Time: Saturday, August 05, 2017 14:30 - CONCLUSION: 1. Cholelithiasis with very trace pericholecystic fluid. Cystic duct patency is difficult to definitively verify on MRCP examination. HIDA scan may be performed if there is continued clinical concern regarding cholecystitis and cystic duct obstruction. 2. No bile duct dilatation or CBD stone/focal abnormality. 3. Mild hepatomegaly with steatosis. Sonu Alston MD Objective Remarks GENERAL: This is a well-nourished, well-developed patient, in no apparent distress. CARDIOVASCULAR: Regular rate and rhythm without murmurs, gallops, or rubs. RESPIRATORY: Clear to auscultation. Breath sounds equal bilaterally. No wheezes , rales, or rhonchi. GASTROINTESTINAL: tender on palpation or RUQ MUSCULOSKELETAL: Extremities without clubbing, cyanosis, or edema. NEURO: Alert & Oriented x4 to person, place, time, situation. Moves all ext x4 A/P Problem List: (1) Transaminitis ICD Codes: R74.0 - Nonspecific elevation of levels of transaminase and lactic acid dehydrogenase [LDH] Plan: - comgmt with GI/General Surgery - Cholelithiasis/cholecystitis - Patient present to the ER from outpatient MD office Total bilirubin 4.3, GGT 1325, AST 75, ALT 113, Alk Phos 251 - US gallbladder reveals: Cholelithiasis along with gallbladder wall thickening and reports positive sonographic Monique's sign suspicious for acute gallbladder inflammation and/or obstruction. Mild hepatomegaly with steatosis - MRCP (08/05/17) --> cholelithiasis, no CBD obstruction identified - IV zosyn (08/06 - present) - diet resumed - Case d/w General Surgery, Dr. Winchester. Pt will undergo cholecystectomy 08/08 or - DVT prophylaxis - supportive care (2) Diabetes mellitus ICD Codes: E11.9 - Type 2 diabetes mellitus without complications Status: Chronic Plan: Patient taking Novolin N 32 units with breakfast and 36 Units with dinner , as well as SSI with Novolin R and metformin. Will hold at this time - diet resumed - SSI (3) HTN (hypertension) ICD Codes: I10 - Essential (primary) hypertension Plan: Patient takes Lisinopril 10 mg daily and coreg 25 mg PO BID, will continue monitor BP (4) Hyperlipidemia ICD Codes: E78.5 - Hyperlipidemia, unspecified Plan: Will hold statin at this time given elevated liver enzymes Problem Qualifiers (1) Diabetes mellitus: Qualified Codes: E11.8 - Type 2 diabetes mellitus with unspecified complications; Z79.4 - detention (current) use of insulin David Almaraz DO Aug 06, 2017 14:22
--- NOTE | 2017-08-06 14:28 | EKG ---
Date Performed: 08/05/2017 Time Performed: 13:46:49 PTAGE: 67 years EKG: Sinus rhythm POSSIBLE LEFT VENTRICULAR HYPERTROPHY ABNORMAL ECG Since PREVIOUS TRACING , no significant change noted PREVIOUS TRACIN08/03/2017 11.27 DOCTOR: Favio Moreno Interpretating Date/Time 08/06/2017 14:27:09
[2017-08-06] MEDS: FLUoxetine HCL 20 MG CAP PO SCH (17:28)
[2017-08-06] MEDS: 1/2 NS + KCL 20 MEQ INJ 1,000 ML IV SCH ×2 (17:29→21:08)
[2017-08-06] MEDS: PANTOPRAZOLE SODIUM 40 MG VIAL IV PUSH SCH (17:37)
[2017-08-06] MEDS: MAGNESIUM HYDROXIDE SUSP 30 ML CUP PO PRN (21:06)
[2017-08-07] VITALS (9 sets, daily range): BP systolic 151–177; BP diastolic 82–101; PULSE 62–72; RESP 15–18; TEMP 97–98.5; O2SAT 94–98
[2017-08-07] MEDS: PIPERACIL-TAZO 3.375 GM PREMIX 50 ML IV SCH ×4 (00:37→16:42)
[2017-08-07] MEDS ORDERED: cloNIDine HCL 0.1 MG TAB PO PRN (02:30)
[2017-08-07] MEDS: LISINOPRIL 10 MG TAB PO SCH ×3 (02:32→20:27)
[2017-08-07] MEDS: MORPHINE SULFATE 2 MG/ML INJ IV PUSH PRN ×5 (02:42→21:11)
[2017-08-07] MEDS: 1/2 NS + KCL 20 MEQ INJ 1,000 ML IV SCH (06:03)
[2017-08-07] MEDS: INSULIN ASPART SUPPLEMENTAL SCALE SQ SCH ×4 (08:20→21:12)
[2017-08-07] MEDS: SODIUM CHLORIDE 0.9% FLUSH 10 ML FLUSH IV FLUSH SCH ×2 (08:21→20:28)
[2017-08-07] MEDS: CARVEDILOL 12.5 MG TAB PO SCH ×2 (08:22→20:27)
[2017-08-07] MEDS: FLUoxetine HCL 20 MG CAP PO SCH (08:22)
[2017-08-07] MEDS: ALLOPURINOL 300 MG TAB PO SCH (08:22)
[2017-08-07 08:43] LABS: AUTOMATED NEUTROPHIL # 4.4 TH/MM3 (1.8-7.7); BASOPHIL % 0.6 % (0.0-2.0); EOSINOPHIL # 0.2 TH/MM3 (0-0.4); EOSINOPHIL % 3.6 % (0.0-4.0); HEMATOCRIT 41.6 % (39.0-51.0); HEMOGLOBIN 14.3 GM/DL (13.0-17.0); LYMPH % 23.2 % (9.0-44.0); LYMPHOCYTE # 1.6 TH/MM3 (1.0-4.8); MEAN CELL VOLUME 92.1 FL (80.0-100.0); MEAN CORPUSCULAR HEMOGLOBIN 31.6 PG (27.0-34.0); MEAN CORPUSCULAR HGB CONC 34.3 % (32.0-36.0); MEAN PLATELET VOLUME 9.3 FL (7.0-11.0); MONO % 7.1 % (0.0-8.0); MONOCYTE # 0.5 TH/MM3 (0-0.9); NEUT % 65.5 % (16.0-70.0); PLATELET COUNT 218 TH/MM3 (150-450); RED BLOOD COUNT 4.52 MIL/MM3 (4.50-5.90); RED CELL DISTRIBUTION WIDTH 14.3 % (11.6-17.2); WHITE BLOOD COUNT 6.7 TH/MM3 (4.0-11.0)
[2017-08-07 09:06] LABS: ALBUMIN 2.9 GM/DL (3.4-5.0); ALKALINE PHOSPHATASE 254 U/L (45-117); ALT (GPT) 84 U/L (12-78); AST (GOT) 58 U/L (15-37); BICARBONATE 30.6 MEQ/L (21.0-32.0); BLOOD UREA NITROGEN 12 MG/DL (7-18); CALCIUM 9.2 MG/DL (8.5-10.1); CHLORIDE 96 MEQ/L (98-107); CREATININE 1.19 MG/DL (0.60-1.30); GLOMERULAR FILTRATION RATE 61 ML/MIN (>89); GLUCOSE,RANDOM 267 MG/DL (74-106); SODIUM (NA) 134 MEQ/L (136-145); TOTAL BILIRUBIN ADULT 2.8 MG/DL (0.2-1.0); TOTAL PROTEIN 7.2 GM/DL (6.4-8.2)
--- NOTE | 2017-08-07 11:48 | HHI.PR ---
Subjective Remarks Pt c/o continued RUQ abdominal pain. Objective Vitals Vital Signs Date Time Temp Pulse Resp B/P (MAP) Pulse Ox O2 Delivery O2 Flow Rate FiO2 08/07/17 08:00 98.1 65 18 160/82 (108) 97 08/07/17 04:00 98.0 69 15 151/97 (115) 94 08/07/17 03:59 66 08/07/17 00:06 72 08/07/17 00:00 97.2 70 15 177/90 (119) 95 08/06/17 20:00 69 08/06/17 16:00 98.4 71 18 145/80 (101) 95 08/06/17 11:52 97.8 70 18 170/88 (115) 96 Result Diagram: 08/07/17 0645 08/07/17 0645 Imaging Last Impressions Chest X-Ray 08/05/17 1259 Signed Impressions: Service Date/Time: Saturday, August 05, 2017 13:11 - CONCLUSION: Minimal clinical changes left base. Mild interstitial edema. Mp Emerson MD FACR Gall Bladder Ultrasound 08/05/17 0000 Signed Impressions: Service Date/Time: Saturday, August 05, 2017 11:43 - CONCLUSION: 1. Cholelithiasis, along with mild gallbladder wall thickening and reported positive sonographic Monique's are suspicious for acute gallbladder inflammation and/or obstruction. 2. Mild hepatomegaly with steatosis. Sukhjinder Xavier MD Cholangiopancreatography MRI 08/05/17 0000 Signed Impressions: Service Date/Time: Saturday, August 05, 2017 14:30 - CONCLUSION: 1. Cholelithiasis with very trace pericholecystic fluid. Cystic duct patency is difficult to definitively verify on MRCP examination. HIDA scan may be performed if there is continued clinical concern regarding cholecystitis and cystic duct obstruction. 2. No bile duct dilatation or CBD stone/focal abnormality. 3. Mild hepatomegaly with steatosis. Sonu Alston MD Objective Remarks GENERAL: This is a well-nourished, well-developed patient, in no apparent distress. CARDIOVASCULAR: Regular rate and rhythm without murmurs, gallops, or rubs. RESPIRATORY: Clear to auscultation. Breath sounds equal bilaterally. No wheezes , rales, or rhonchi. GASTROINTESTINAL: tender on palpation or RUQ MUSCULOSKELETAL: Extremities without clubbing, cyanosis, or edema. NEURO: Alert & Oriented x4 to person, place, time, situation. Moves all ext x4 A/P Problem List: (1) Transaminitis ICD Codes: R74.0 - Nonspecific elevation of levels of transaminase and lactic acid dehydrogenase [LDH] Plan: - comgmt with GI/General Surgery - Cholelithiasis/cholecystitis - Patient present to the ER from outpatient MD office Total bilirubin 4.3, GGT 1325, AST 75, ALT 113, Alk Phos 251 - US gallbladder reveals: Cholelithiasis along with gallbladder wall thickening and reports positive sonographic Monique's sign suspicious for acute gallbladder inflammation and/or obstruction. Mild hepatomegaly with steatosis - MRCP (08/05/17) --> cholelithiasis, no CBD obstruction identified - IV zosyn (08/06 - present) - diet resumed - Case d/w General Surgery, Dr. Winchester. Pt will undergo cholecystectomy 08/08 or - DVT prophylaxis - supportive care 08/07/17 - continue current treatment plan as outlined above - cholecystectomy 08/09/17 (2) Diabetes mellitus ICD Codes: E11.9 - Type 2 diabetes mellitus without complications Status: Chronic Plan: Patient taking Novolin N 32 units with breakfast and 36 Units with dinner , as well as SSI with Novolin R and metformin. Will hold at this time - diet resumed - SSI (3) HTN (hypertension) ICD Codes: I10 - Essential (primary) hypertension Plan: Patient takes Lisinopril 10 mg daily and coreg 25 mg PO BID, will continue monitor BP (4) Hyperlipidemia ICD Codes: E78.5 - Hyperlipidemia, unspecified Plan: Will hold statin at this time given elevated liver enzymes Problem Qualifiers (1) Diabetes mellitus: Qualified Codes: E11.8 - Type 2 diabetes mellitus with unspecified complications; Z79.4 - shelter (current) use of insulin David Almaraz DO Aug 07, 2017 11:48
[2017-08-07] MEDS: PANTOPRAZOLE SODIUM 40 MG VIAL IV PUSH SCH (12:22)
--- NOTE | 2017-08-07 13:04 | HHI.PR ---
Subjective Subjective Notes Tolerating low fat food. Had another "attack" this morning. LFTs improving. Objective Vitals/I&O Vital Signs Date Time Temp Pulse Resp B/P (MAP) Pulse Ox O2 Delivery O2 Flow Rate FiO2 08/07/17 08:00 98.1 65 18 160/82 (108) 97 08/05/17 13:00 Room Air Labs Laboratory Tests Test 08/07/17 06:45 White Blood Count 6.7 Red Blood Count 4.52 Hemoglobin 14.3 Hematocrit 41.6 Mean Corpuscular Volume 92.1 Mean Corpuscular Hemoglobin 31.6 Mean Corpuscular Hemoglobin Concent 34.3 Red Cell Distribution Width 14.3 Platelet Count 218 Mean Platelet Volume 9.3 Neutrophils (%) (Auto) 65.5 Lymphocytes (%) (Auto) 23.2 Monocytes (%) (Auto) 7.1 Eosinophils (%) (Auto) 3.6 Basophils (%) (Auto) 0.6 Neutrophils # (Auto) 4.4 Lymphocytes # (Auto) 1.6 Monocytes # (Auto) 0.5 Eosinophils # (Auto) 0.2 Basophils # (Auto) 0.0 CBC Comment DIFF FINAL Differential Comment Blood Urea Nitrogen 12 Creatinine 1.19 Random Glucose 267 Total Protein 7.2 Albumin 2.9 Calcium Level 9.2 Alkaline Phosphatase 254 Aspartate Amino Transf (AST/SGOT) 58 Alanine Aminotransferase (ALT/SGPT) 84 Total Bilirubin 2.8 Sodium Level 134 Potassium Level 3.9 Chloride Level 96 Carbon Dioxide Level 30.6 Anion Gap 7 Estimat Glomerular Filtration Rate 61 Radiology Last Impressions Chest X-Ray 08/05/17 1259 Signed Impressions: Service Date/Time: Saturday, August 05, 2017 13:11 - CONCLUSION: Minimal clinical changes left base. Mild interstitial edema. Mp Emerson MD FACR Gall Bladder Ultrasound 08/05/17 0000 Signed Impressions: Service Date/Time: Saturday, August 05, 2017 11:43 - CONCLUSION: 1. Cholelithiasis, along with mild gallbladder wall thickening and reported positive sonographic Monique's are suspicious for acute gallbladder inflammation and/or obstruction. 2. Mild hepatomegaly with steatosis. Sukhjinder Xavier MD Cholangiopancreatography MRI 08/05/17 0000 Signed Impressions: Service Date/Time: Saturday, August 05, 2017 14:30 - CONCLUSION: 1. Cholelithiasis with very trace pericholecystic fluid. Cystic duct patency is difficult to definitively verify on MRCP examination. HIDA scan may be performed if there is continued clinical concern regarding cholecystitis and cystic duct obstruction. 2. No bile duct dilatation or CBD stone/focal abnormality. 3. Mild hepatomegaly with steatosis. Sonu Alston MD Narrative Exam NAD Obese, abdomen round with RUQ ttp A/P Assessment and Plan 67 yo M obese male with acute cholecystitis, recent intermittent choledocholithiasis Plan for cholecystectomy Tuesday. Continue low fat diet. Repeat LFTs in am. Sid Winchester MD Aug 07, 2017 13:04
[2017-08-07] MEDS: hydrOXYzine HCL 25 MG TAB PO PRN (20:30)
[2017-08-07] MEDS ORDERED: INSULIN DETEMIR 100 UNITS/ML VIAL SQ ONE (21:00)
[2017-08-07] MEDS ORDERED: INSULIN DETEMIR 100 UNITS/ML VIAL SQ SCH (21:00)
[2017-08-07] MEDS: INSULIN DETEMIR 100 UNITS/ML VIAL SQ SCH (21:11)
[2017-08-08] VITALS (15 sets, daily range): BP systolic 115–190; BP diastolic 65–95; PULSE 55–84; RESP 15–18; TEMP 96.4–98.3; O2SAT 94–97
[2017-08-08] MEDS: PIPERACIL-TAZO 3.375 GM PREMIX 50 ML IV SCH ×4 (00:15→16:53)
[2017-08-08] MEDS: MORPHINE SULFATE 2 MG/ML INJ IV PUSH PRN ×4 (00:19→21:36)
[2017-08-08] MEDS: hydrOXYzine HCL 25 MG TAB PO PRN ×2 (05:51→11:31)
[2017-08-08 07:47] LABS: ALBUMIN 2.7 GM/DL (3.4-5.0); ALT (GPT) 78 U/L (12-78); AST (GOT) 67 U/L (15-37); BICARBONATE 30.5 MEQ/L (21.0-32.0); BLOOD UREA NITROGEN 14 MG/DL (7-18); CHLORIDE 98 MEQ/L (98-107); CREATININE 1.16 MG/DL (0.60-1.30); GLOMERULAR FILTRATION RATE 63 ML/MIN (>89); GLUCOSE,RANDOM 272 MG/DL (74-106); SODIUM (NA) 134 MEQ/L (136-145)
[2017-08-08 07:50] LABS: ALKALINE PHOSPHATASE 230 U/L (45-117); TOTAL BILIRUBIN ADULT 2.1 MG/DL (0.2-1.0); TOTAL PROTEIN 6.9 GM/DL (6.4-8.2)
[2017-08-08] MEDS: INSULIN DETEMIR 100 UNITS/ML VIAL SQ SCH ×2 (08:54→22:42)
[2017-08-08] MEDS: INSULIN ASPART SUPPLEMENTAL SCALE SQ SCH ×4 (08:55→22:43)
[2017-08-08] MEDS: SODIUM CHLORIDE 0.9% FLUSH 10 ML FLUSH IV FLUSH SCH ×2 (08:55→21:41)
[2017-08-08] MEDS: ALLOPURINOL 300 MG TAB PO SCH (08:56)
[2017-08-08] MEDS: FLUoxetine HCL 20 MG CAP PO SCH (08:56)
[2017-08-08] MEDS: LISINOPRIL 10 MG TAB PO SCH ×2 (08:56→21:41)
[2017-08-08] MEDS: CARVEDILOL 12.5 MG TAB PO SCH ×2 (08:56→21:41)
--- NOTE | 2017-08-08 09:44 | HHI.PR ---
Subjective Subjective Notes He is doing ok this morning. No more "attacks". LFTs continue to downtrend. Objective Vitals/I&O Vital Signs Date Time Temp Pulse Resp B/P (MAP) Pulse Ox O2 Delivery O2 Flow Rate FiO2 08/08/17 08:05 55 08/08/17 08:00 97.1 18 140/78 (98) 95 08/05/17 13:00 Room Air Labs Laboratory Tests Test 08/08/17 05:48 Blood Urea Nitrogen 14 Creatinine 1.16 Random Glucose 272 Total Protein 6.9 Albumin 2.7 Calcium Level 9.0 Alkaline Phosphatase 230 Aspartate Amino Transf (AST/SGOT) 67 Alanine Aminotransferase (ALT/SGPT) 78 Total Bilirubin 2.1 Sodium Level 134 Potassium Level 4.2 Chloride Level 98 Carbon Dioxide Level 30.5 Anion Gap 6 Estimat Glomerular Filtration Rate 63 Radiology Last Impressions Chest X-Ray 08/05/17 1259 Signed Impressions: Service Date/Time: Saturday, August 05, 2017 13:11 - CONCLUSION: Minimal clinical changes left base. Mild interstitial edema. Mp Emerson MD FACR Gall Bladder Ultrasound 08/05/17 0000 Signed Impressions: Service Date/Time: Saturday, August 05, 2017 11:43 - CONCLUSION: 1. Cholelithiasis, along with mild gallbladder wall thickening and reported positive sonographic Monique's are suspicious for acute gallbladder inflammation and/or obstruction. 2. Mild hepatomegaly with steatosis. Sukhjinder Xavier MD Cholangiopancreatography MRI 08/05/17 0000 Signed Impressions: Service Date/Time: Saturday, August 05, 2017 14:30 - CONCLUSION: 1. Cholelithiasis with very trace pericholecystic fluid. Cystic duct patency is difficult to definitively verify on MRCP examination. HIDA scan may be performed if there is continued clinical concern regarding cholecystitis and cystic duct obstruction. 2. No bile duct dilatation or CBD stone/focal abnormality. 3. Mild hepatomegaly with steatosis. Sonu Alston MD Narrative Exam NAD Obese, abdomen round with RUQ ttp A/P Assessment and Plan 67 yo M obese male with acute cholecystitis, recent intermittent choledocholithiasis Plan for cholecystectomy tomorrow. Procedure discussed in detail with him including higher than normal risk of requiring open operation. He understands and desires to proceed. Ranulfo,Sid CURIEL Aug 08, 2017 09:44
[2017-08-08] MEDS: SODIUM CHLORIDE 0.9% FLUSH 10 ML FLUSH IV FLUSH PRN ×3 (11:31→16:53)
--- NOTE | 2017-08-08 12:03 | HHI.PR ---
Subjective Remarks Pt continues with RUQ pain requiring narcotics. Pt is eager for cholecystectomy. Objective Vitals Vital Signs Date Time Temp Pulse Resp B/P (MAP) Pulse Ox O2 Delivery O2 Flow Rate FiO2 08/08/17 09:53 77 08/08/17 08:05 55 08/08/17 08:00 97.1 59 18 140/78 (98) 95 08/08/17 04:15 65 08/08/17 04:00 97.0 61 15 142/90 (107) 96 08/08/17 00:15 72 08/08/17 00:00 98.3 84 15 115/65 (82) 94 08/07/17 20:00 97.8 62 15 158/91 (113) 96 08/07/17 20:00 67 08/07/17 17:08 67 08/07/17 16:00 98.5 69 18 172/101 (124) 98 Result Diagram: 08/07/17 0645 08/08/17 0548 Imaging Last Impressions Chest X-Ray 08/05/17 1259 Signed Impressions: Service Date/Time: Saturday, August 05, 2017 13:11 - CONCLUSION: Minimal clinical changes left base. Mild interstitial edema. Mp Emerson MD FACR Gall Bladder Ultrasound 08/05/17 0000 Signed Impressions: Service Date/Time: Saturday, August 05, 2017 11:43 - CONCLUSION: 1. Cholelithiasis, along with mild gallbladder wall thickening and reported positive sonographic Monique's are suspicious for acute gallbladder inflammation and/or obstruction. 2. Mild hepatomegaly with steatosis. Sukhjinder Xavier MD Cholangiopancreatography MRI 08/05/17 0000 Signed Impressions: Service Date/Time: Saturday, August 05, 2017 14:30 - CONCLUSION: 1. Cholelithiasis with very trace pericholecystic fluid. Cystic duct patency is difficult to definitively verify on MRCP examination. HIDA scan may be performed if there is continued clinical concern regarding cholecystitis and cystic duct obstruction. 2. No bile duct dilatation or CBD stone/focal abnormality. 3. Mild hepatomegaly with steatosis. Sonu Alston MD Objective Remarks GENERAL: This is a well-nourished, well-developed patient, in no apparent distress. CARDIOVASCULAR: Regular rate and rhythm without murmurs, gallops, or rubs. RESPIRATORY: Clear to auscultation. Breath sounds equal bilaterally. No wheezes , rales, or rhonchi. GASTROINTESTINAL: tender on palpation or RUQ MUSCULOSKELETAL: Extremities without clubbing, cyanosis, or edema. NEURO: Alert & Oriented x4 to person, place, time, situation. Moves all ext x4 A/P Problem List: (1) Transaminitis ICD Codes: R74.0 - Nonspecific elevation of levels of transaminase and lactic acid dehydrogenase [LDH] Plan: - comgmt with GI/General Surgery - Cholelithiasis/cholecystitis - Patient present to the ER from outpatient MD office Total bilirubin 4.3, GGT 1325, AST 75, ALT 113, Alk Phos 251 - US gallbladder reveals: Cholelithiasis along with gallbladder wall thickening and reports positive sonographic Monique's sign suspicious for acute gallbladder inflammation and/or obstruction. Mild hepatomegaly with steatosis - MRCP (08/05/17) --> cholelithiasis, no CBD obstruction identified - IV zosyn (08/06 - present) - diet resumed, NPO after MN - Case d/w General Surgery, Dr. Winchester. Pt will undergo cholecystectomy 08/09 - norco/morphine prn pain - DVT prophylaxis - supportive care (2) Diabetes mellitus ICD Codes: E11.9 - Type 2 diabetes mellitus without complications Status: Chronic Plan: Patient taking Novolin N 32 units with breakfast and 36 Units with dinner , as well as SSI with Novolin R and metformin. 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
[2017-08-08] MEDS: PANTOPRAZOLE SODIUM 40 MG VIAL IV PUSH SCH (14:00)
[2017-08-08] MEDS: ACETAMINOPHEN/HYDROcodone 325 MG/10 MG TAB PO PRN (16:55)
[2017-08-09] VITALS (7 sets, daily range): BP systolic 107–144; BP diastolic 60–81; PULSE 59–78; RESP 17–18; TEMP 96.6–98.9; O2SAT 95–98
[2017-08-09] MEDS: PIPERACIL-TAZO 3.375 GM PREMIX 50 ML IV SCH ×5 (01:16→23:16)
[2017-08-09] MEDS ORDERED: POVIDONE IODINE 5% (ANTISEPSIS KIT) 4 APPLICATIONS EACH NARE PRN (05:15)
[2017-08-09] MEDS ORDERED: SODIUM CHLORID 0.9% 500 ML IV PRN (05:15)
[2017-08-09] MEDS ORDERED: LACTATED RINGER'S 1000 ML IV PRN (05:15)
[2017-08-09] MEDS ORDERED: CHLORHEXIDINE GLUCONATE 2 % 1 PACK (2 CLOTHS) TOPICAL PRN (05:15)
[2017-08-09] MEDS: MORPHINE SULFATE 2 MG/ML INJ IV PUSH PRN ×2 (05:56→09:47)
[2017-08-09 07:14] LABS: AUTOMATED NEUTROPHIL # 4.5 TH/MM3 (1.8-7.7); BASOPHIL # 0.1 TH/MM3 (0-0.2); BASOPHIL % 0.8 % (0.0-2.0); EOSINOPHIL # 0.3 TH/MM3 (0-0.4); EOSINOPHIL % 4.9 % (0.0-4.0); HEMOGLOBIN 14.7 GM/DL (13.0-17.0); LYMPH % 22.3 % (9.0-44.0); LYMPHOCYTE # 1.6 TH/MM3 (1.0-4.8); MEAN CELL VOLUME 91.1 FL (80.0-100.0); MEAN CORPUSCULAR HEMOGLOBIN 31.2 PG (27.0-34.0); MEAN CORPUSCULAR HGB CONC 34.2 % (32.0-36.0); MEAN PLATELET VOLUME 9.1 FL (7.0-11.0); MONO % 8.8 % (0.0-8.0); MONOCYTE # 0.6 TH/MM3 (0-0.9); NEUT % 63.2 % (16.0-70.0); PLATELET COUNT 241 TH/MM3 (150-450); RED BLOOD COUNT 4.72 MIL/MM3 (4.50-5.90); RED CELL DISTRIBUTION WIDTH 14.1 % (11.6-17.2); WHITE BLOOD COUNT 7.1 TH/MM3 (4.0-11.0)
[2017-08-09 07:37] LABS: ALT (GPT) 84 U/L (12-78); AST (GOT) 77 U/L (15-37); BICARBONATE 28.4 MEQ/L (21.0-32.0); CALCIUM 9.4 MG/DL (8.5-10.1); CHLORIDE 97 MEQ/L (98-107); CREATININE 1.16 MG/DL (0.60-1.30); GLOMERULAR FILTRATION RATE 63 ML/MIN (>89); GLUCOSE,RANDOM 270 MG/DL (74-106); SODIUM (NA) 132 MEQ/L (136-145)
[2017-08-09 07:44] LABS: ALBUMIN 2.8 GM/DL (3.4-5.0); ALKALINE PHOSPHATASE 234 U/L (45-117); BLOOD UREA NITROGEN 21 MG/DL (7-18); TOTAL BILIRUBIN ADULT 1.8 MG/DL (0.2-1.0); TOTAL PROTEIN 7.1 GM/DL (6.4-8.2)
--- NOTE | 2017-08-09 07:59 | HHI.PR ---
Subjective Remarks Patient NPO for cholecystectomy this AM reports feeling hungry itchy Objective Vitals Vital Signs Date Time Temp Pulse Resp B/P (MAP) Pulse Ox O2 Delivery O2 Flow Rate FiO2 08/09/17 05:10 97.7 67 18 125/60 (81) 95 08/08/17 23:00 97.8 65 18 154/79 (104) 95 08/08/17 21:58 96.4 64 18 190/84 (119) 96 08/08/17 21:41 18 08/08/17 18:03 71 08/08/17 16:23 67 08/08/17 16:00 97.1 60 18 148/84 (105) 96 08/08/17 15:08 59 08/08/17 14:44 60 08/08/17 12:00 97.3 62 18 151/95 (113) 97 08/08/17 09:53 77 08/08/17 08:05 55 08/08/17 08:00 97.1 59 18 140/78 (98) 95 Result Diagram: 08/09/17 0535 08/09/17 0535 Other Results Laboratory Tests Test 08/07/17 06:45 08/08/17 05:48 08/09/17 05:35 White Blood Count 6.7 TH/MM3 7.1 TH/MM3 Red Blood Count 4.52 MIL/MM3 4.72 MIL/MM3 Hemoglobin 14.3 GM/DL 14.7 GM/DL Hematocrit 41.6 % 43.0 % Mean Corpuscular Volume 92.1 FL 91.1 FL Mean Corpuscular Hemoglobin 31.6 PG 31.2 PG Mean Corpuscular Hemoglobin Concent 34.3 % 34.2 % Red Cell Distribution Width 14.3 % 14.1 % Platelet Count 218 TH/MM3 241 TH/MM3 Mean Platelet Volume 9.3 FL 9.1 FL Neutrophils (%) (Auto) 65.5 % 63.2 % Lymphocytes (%) (Auto) 23.2 % 22.3 % Monocytes (%) (Auto) 7.1 % 8.8 % Eosinophils (%) (Auto) 3.6 % 4.9 % Basophils (%) (Auto) 0.6 % 0.8 % Neutrophils # (Auto) 4.4 TH/MM3 4.5 TH/MM3 Lymphocytes # (Auto) 1.6 TH/MM3 1.6 TH/MM3 Monocytes # (Auto) 0.5 TH/MM3 0.6 TH/MM3 Eosinophils # (Auto) 0.2 TH/MM3 0.3 TH/MM3 Basophils # (Auto) 0.0 TH/MM3 0.1 TH/MM3 CBC Comment DIFF FINAL DIFF FINAL Differential Comment Blood Urea Nitrogen 12 MG/DL 14 MG/DL 21 MG/DL Creatinine 1.19 MG/DL 1.16 MG/DL 1.16 MG/DL Random Glucose 267 MG/DL 272 MG/DL 270 MG/DL Total Protein 7.2 GM/DL 6.9 GM/DL 7.1 GM/DL Albumin 2.9 GM/DL 2.7 GM/DL 2.8 GM/DL Calcium Level 9.2 MG/DL 9.0 MG/DL 9.4 MG/DL Alkaline Phosphatase 254 U/L 230 U/L 234 U/L Aspartate Amino Transf (AST/SGOT) 58 U/L 67 U/L 77 U/L Alanine Aminotransferase (ALT/SGPT) 84 U/L 78 U/L 84 U/L Total Bilirubin 2.8 MG/DL 2.1 MG/DL 1.8 MG/DL Sodium Level 134 MEQ/L 134 MEQ/L 132 MEQ/L Potassium Level 3.9 MEQ/L 4.2 MEQ/L 3.9 MEQ/L Chloride Level 96 MEQ/L 98 MEQ/L 97 MEQ/L Carbon Dioxide Level 30.6 MEQ/L 30.5 MEQ/L 28.4 MEQ/L Anion Gap 7 MEQ/L 6 MEQ/L 7 MEQ/L Estimat Glomerular Filtration Rate 61 ML/MIN 63 ML/MIN 63 ML/MIN Imaging Last Impressions Chest X-Ray 08/05/17 1259 Signed Impressions: Service Date/Time: Saturday, August 05, 2017 13:11 - CONCLUSION: Minimal clinical changes left base. Mild interstitial edema. Mp Emerson MD FACR Gall Bladder Ultrasound 08/05/17 0000 Signed Impressions: Service Date/Time: Saturday, August 05, 2017 11:43 - CONCLUSION: 1. Cholelithiasis, along with mild gallbladder wall thickening and reported positive sonographic Monique's are suspicious for acute gallbladder inflammation and/or obstruction. 2. Mild hepatomegaly with steatosis. Sukhjinder Xavier MD Cholangiopancreatography MRI 08/05/17 0000 Signed Impressions: Service Date/Time: Saturday, August 05, 2017 14:30 - CONCLUSION: 1. Cholelithiasis with very trace pericholecystic fluid. Cystic duct patency is difficult to definitively verify on MRCP examination. HIDA scan may be performed if there is continued clinical concern regarding cholecystitis and cystic duct obstruction. 2. No bile duct dilatation or CBD stone/focal abnormality. 3. Mild hepatomegaly with steatosis. Sonu Alston MD Objective Remarks GENERAL: This is a well-nourished, well-developed patient, in no apparent distress. CARDIOVASCULAR: Regular rate and rhythm without murmurs, gallops, or rubs. RESPIRATORY: Clear to auscultation. Breath sounds equal bilaterally. No wheezes , rales, or rhonchi. GASTROINTESTINAL: tender on palpation or RUQ MUSCULOSKELETAL: Extremities without clubbing, cyanosis, or edema. NEURO: Alert & Oriented x4 to person, place, time, situation. Moves all ext x4 A/P Problem List: (1) Transaminitis ICD Codes: R74.0 - Nonspecific elevation of levels of transaminase and lactic acid dehydrogenase [LDH] Plan: - comgmt with GI/General Surgery - Cholelithiasis/cholecystitis - Patient present to the ER from outpatient MD office Total bilirubin 4.3, GGT 1325, AST 75, ALT 113, Alk Phos 251 - US gallbladder reveals: Cholelithiasis along with gallbladder wall thickening and reports positive sonographic Monique's sign suspicious for acute gallbladder inflammation and/or obstruction. Mild hepatomegaly with steatosis - MRCP (08/05/17) --> cholelithiasis, no CBD obstruction identified - IV zosyn (08/06 - present) - NPO - Case d/w General Surgery, Dr. Winchester (08/07). Plan for pt will undergo cholecystectomy 08/09 - norco/morphine prn pain - DVT prophylaxis - supportive care - CMP pending for this AM (2) Diabetes mellitus ICD Codes: E11.9 - Type 2 diabetes mellitus without complications Status: Chronic Plan: Patient taking Novolin N 32 units with breakfast and 36 Units with dinner , as well as SSI with Novolin R and metformin. Will hold at this time - diet resumed - levemir 8units BID, Patient currently NPO plan to increase Levemir once tolerating diet - SSI (3) HTN (hypertension) ICD Codes: I10 - Essential (primary) hypertension Plan: Patient takes Lisinopril 10 mg daily and coreg 25 mg PO BID, will continue monitor BP (4) Hyperlipidemia ICD Codes: E78.5 - Hyperlipidemia, unspecified Plan: Will hold statin at this time given elevated liver enzymes Assessment and Plan Patient examined. Assessment and plan formulated with Eladia Yeung PA-C. I agree with the above. going to OR today. Problem Qualifiers (1) Diabetes mellitus: Qualified Codes: E11.8 - Type 2 diabetes mellitus with unspecified complications; Z79.4 - equipment operator intermodal yard (current) use of insulin Eladia Yeung Aug 09, 2017 07:59 Cb Zhang MD Aug 09, 2017 11:36
[2017-08-09] MEDS: FLUoxetine HCL 20 MG CAP PO SCH (08:02)
[2017-08-09] MEDS: hydrOXYzine HCL 25 MG TAB PO PRN ×2 (08:02→20:54)
[2017-08-09] MEDS: ALLOPURINOL 300 MG TAB PO SCH (08:02)
[2017-08-09] MEDS: LISINOPRIL 10 MG TAB PO SCH ×2 (08:02→20:49)
[2017-08-09] MEDS: SODIUM CHLORIDE 0.9% FLUSH 10 ML FLUSH IV FLUSH SCH ×2 (08:03→20:48)
[2017-08-09] MEDS: CARVEDILOL 12.5 MG TAB PO SCH ×2 (08:03→20:47)
[2017-08-09] MEDS: INSULIN ASPART SUPPLEMENTAL SCALE SQ SCH ×4 (08:40→20:49)
[2017-08-09] MEDS ORDERED: GLYCOPYRROLATE 1 MG/5 ML SYRINGE IV PUSH ONE (12:00)
[2017-08-09] MEDS ORDERED: PHENYLEPH/NS 1000 MCG/10 ML SYR IV ONE (12:00)
[2017-08-09] MEDS ORDERED: ONDANSETRON HCL 4 MG/2 ML VIAL IV ONE (12:00)
[2017-08-09] MEDS ORDERED: ESMOLOL HCL 100 MG/10 ML VIAL IV ONE (12:00)
[2017-08-09] MEDS ORDERED: ROCURONIUM INJ 50 MG/5 ML SYRINGE IV PUSH ONE (12:00)
[2017-08-09] MEDS ORDERED: NEOSTIGMINE 5 MG/5 ML SYRINGE IV PUSH ONE (12:00)
[2017-08-09] MEDS ORDERED: LIDOCAINE HCL 1% PF 5 ML SYRINGE OTHER ONE (12:00)
[2017-08-09] MEDS ORDERED: PROPOFOL 200 MG/20 ML AMP IV ONE (12:00)
[2017-08-09] MEDS ORDERED: ePHEDrine/NS 25 MG/5 ML SYRINGE IV ONE (12:00)
[2017-08-09] MEDS ORDERED: BUPIVACAINE/EPINEPHRINE 0.5% PF 30 ML VIAL ONE (12:29)
[2017-08-09] MEDS ORDERED: DO NOT ADM ANY ANTICOAGULANT DRUGS PRN (13:10)
--- NOTE | 2017-08-09 14:34 | PD.OP ---
cc: Sid Winchester MD Operative Report Date of Surgery: Aug 09, 2017 Preoperative Diagnosis: (1) Acute cholecystitis due to biliary calculus (2) Choledocholithiasis with acute cholecystitis Postoperative Diagnosis: (1) Acute cholecystitis due to biliary calculus (2) Choledocholithiasis with acute cholecystitis (3) Hydrops of gallbladder Procedure: Laparoscopic lysis of adhesions Laparoscopic cholecystectomy Anesthesia: BECK Surgeon: Sid Winchester Structural Welder(s): Toyin DUMONT Operation and Findings: Complications: None apparent EBL:20cc Operative findings: Distended and inflamed gallbladder with stones. The gallbladder was tense and required decompression. Omental adhesions to the anterior abdominal wall especially in the area of previously placed ventral hernia mesh. The most cephalad adhesions required adhesiolysis with EndoShears. Procedure in detail: The patient was taken to the operating room and placed in the supine position. General endotracheal anesthesia was induced. The abdomen was prepped and draped in usual sterile fashion and a surgical timeout was performed to verify correct patient procedure and site. Appropriate perioperative antibiotics were administered. Local anesthetic was injected in the skin and subcutaneous tissue in the left upper abdomen due to patient's history of ventral hernia repair with mesh. Blunt dissection was carried out down to the underlying fascia which was sharply incised. The muscle was spread bluntly and the next layer of fascia elevated and cut with the Metzenbaum scissors. The peritoneum was entered bluntly. The 12 mm GelPort was inserted and the abdomen insufflated to 15 mmHg with CO2 gas which the patient tolerated well. The patient was placed in reverse Trendelenburg position and turned slightly to the left. There is noted to be significant amount of adhesions to the anterior abdominal wall from a few centimeters above the umbilicus down to the pubis. The outer edge of the previously placed ventral hernia mesh and titanium tacks were able to be seen. The most cephalad adhesions were in the way of our procedure. Therefore a 5 mm port was placed in the left lateral abdomen and the laparoscopic scissors used to take down the cephalad adhesions without complication. No adhesions to the mesh were taken down and the mesh was not disrupted. A 5 mm port was placed just superior to the mesh in the midline. Another was placed in the subxiphoid area, one in the upper midline, and one in the right lateral abdomen. Attention was turned to the right upper quadrant and the dome of the gallbladder was grasped and retracted cephalad. The foreskin was too tense to be able to easily grasp and therefore required decompression. A 60 cc syringe was attached to the aspiration needle inserted and the dome of the gallbladder and 60 cc of clear bile was removed. Now the dome was easily grasped and The infundibulum was retracted laterally to expose Calot's triangle. Blunt dissection and judicious use of electrocautery was used to expose the cystic duct and the cystic artery directly entering the gallbladder. Two clips were placed proximally on each of these structures and one distally and they were transected. The gallbladder was then removed from the liver bed using electrocautery. Hemostasis was achieved. The gallbladder was then removed from the abdomen using an Endo Catch bag. The clips were in place on the cystic duct and cystic artery stumps with no bleeding or bile leakage. The right upper quadrant was copiously irrigated. At this point, the abdomen was allowed to desufflate and trochars were removed. The fascia at the 12 mm port site was closed in 2 layers with 0 Vicryl suture. Skin was closed with subcuticular 4-0 Monocryl as well as Dermabond. The patient tolerated the procedure well and was extubated and taken to PACU in stable condition. All sponge and instrument counts were correct. Sid Winchester MD Aug 09, 2017 14:34
[2017-08-09] MEDS ORDERED: HYDR-3516 PO (14:39)
[2017-08-09] MEDS ORDERED: *morphine SULFATE 10 MG/ML PERIprocedure ONLY ONE ×2 (15:11→15:29)
[2017-08-09] MEDS: PANTOPRAZOLE SODIUM 40 MG VIAL IV PUSH SCH (17:52)
[2017-08-09] MEDS: ACETAMINOPHEN/HYDROcodone 325 MG/10 MG TAB PO PRN (22:17)
[2017-08-10] MEDS: MORPHINE SULFATE 2 MG/ML INJ IV PUSH PRN ×3 (00:03→10:11)
[2017-08-10 00:35] VITALS: BP 120/69; PULSE 86; RESP 18; TEMP 96.7; O2SAT 98
[2017-08-10] MEDS: ACETAMINOPHEN/HYDROcodone 325 MG/10 MG TAB PO PRN ×2 (03:13→07:36)
[2017-08-10 03:29] VITALS: BP 122/67; PULSE 84; RESP 18; TEMP 97.4; O2SAT 98
[2017-08-10 03:50] VITALS: PULSE 63
[2017-08-10] MEDS: PIPERACIL-TAZO 3.375 GM PREMIX 50 ML IV SCH (04:24)
[2017-08-10] MEDS: FLUoxetine HCL 20 MG CAP PO SCH (07:35)
[2017-08-10] MEDS: CARVEDILOL 12.5 MG TAB PO SCH (07:35)
[2017-08-10] MEDS: ALLOPURINOL 300 MG TAB PO SCH (07:35)
[2017-08-10] MEDS: LISINOPRIL 10 MG TAB PO SCH (07:36)
[2017-08-10] MEDS: hydrOXYzine HCL 25 MG TAB PO PRN (07:37)
[2017-08-10] MEDS: MAGNESIUM HYDROXIDE SUSP 30 ML CUP PO PRN (07:37)
[2017-08-10] MEDS: SODIUM CHLORIDE 0.9% FLUSH 10 ML FLUSH IV FLUSH SCH (07:37)
[2017-08-10] MEDS: INSULIN ASPART SUPPLEMENTAL SCALE SQ SCH (07:42)
[2017-08-10 08:00] VITALS: BP 123/61; PULSE 62; RESP 18; TEMP 97.1; O2SAT 97
[2017-08-10 08:32] LABS: BASOPHIL # 0.1 TH/MM3 (0-0.2); BASOPHIL % 0.8 % (0.0-2.0); EOSINOPHIL # 0.3 TH/MM3 (0-0.4); EOSINOPHIL % 3.3 % (0.0-4.0); HEMATOCRIT 40.8 % (39.0-51.0); HEMOGLOBIN 14.2 GM/DL (13.0-17.0); LYMPH % 21.6 % (9.0-44.0); LYMPHOCYTE # 1.6 TH/MM3 (1.0-4.8); MEAN CELL VOLUME 91.9 FL (80.0-100.0); MEAN CORPUSCULAR HGB CONC 34.9 % (32.0-36.0); MEAN PLATELET VOLUME 9.6 FL (7.0-11.0); MONO % 7.9 % (0.0-8.0); MONOCYTE # 0.6 TH/MM3 (0-0.9); NEUT % 66.4 % (16.0-70.0); PLATELET COUNT 292 TH/MM3 (150-450); RED BLOOD COUNT 4.44 MIL/MM3 (4.50-5.90); RED CELL DISTRIBUTION WIDTH 14.5 % (11.6-17.2); WHITE BLOOD COUNT 7.6 TH/MM3 (4.0-11.0)
[2017-08-10 08:54] LABS: ALBUMIN 2.6 GM/DL (3.4-5.0); ALKALINE PHOSPHATASE 210 U/L (45-117); ALT (GPT) 105 U/L (12-78); AST (GOT) 144 U/L (15-37); BICARBONATE 27.9 MEQ/L (21.0-32.0); BLOOD UREA NITROGEN 23 MG/DL (7-18); CHLORIDE 93 MEQ/L (98-107); CREATININE 1.43 MG/DL (0.60-1.30); GLOMERULAR FILTRATION RATE 49 ML/MIN (>89); GLUCOSE,RANDOM 332 MG/DL (74-106); SODIUM (NA) 129 MEQ/L (136-145); TOTAL BILIRUBIN ADULT 1.8 MG/DL (0.2-1.0)
[2017-08-10 09:48] VITALS: O2SAT 97
--- NOTE | 2017-08-10 11:07 | HHI.DCPOC ---
Discharge Care Plan Diagnosis: (1) Acute cholecystitis due to biliary calculus Goals to Promote Your Health * To prevent worsening of your condition and complications * To maintain your health at the optimal level Directions to Meet Your Goals Take your medications as prescribed Follow your dietary instruction Follow activity as directed Keep your appointments as scheduled Take your immunizations and boosters as scheduled If your symptoms worsen call your PCP, if no PCP go to Urgent Care Center or Emergency Room Smoking is Dangerous to Your Health. Avoid second hand smoke Call the 24-hour hour crisis hotline for domestic abuse at Cb Zhang MD Aug 10, 2017 11:06
--- NOTE | 2017-08-10 11:14 | HHI.DS ---
Discharge Summary Admission Date Aug 05, 2017 at 13:20 Discharge Date: Aug 10, 2017 Admitting Diagnosis abd pain, abnormal labs send by MD (1) Acute cholecystitis due to biliary calculus Diagnosis: Principal ICD Codes: K80.00 - Calculus of gallbladder with acute cholecystitis without obstruction (2) Diabetes mellitus Diagnosis: Secondary ICD Codes: E11.9 - Type 2 diabetes mellitus without complications Status: Chronic (3) HTN (hypertension) Diagnosis: Secondary ICD Codes: I10 - Essential (primary) hypertension (4) Hyperlipidemia Diagnosis: Secondary ICD Codes: E78.5 - Hyperlipidemia, unspecified (5) Transaminitis Diagnosis: Principal ICD Codes: R74.0 - Nonspecific elevation of levels of transaminase and lactic acid dehydrogenase [LDH] Brief History This is a 67 year old male patient with a past medical history which includes BPH, DM, gout, HTN and Hyperlipidemia. Patient was seen in the ER 08/03/17 for elevated liver enzymes and DC home. Patient again presents to the ER today sent by outpatient GI Dr. Moore. Patient reports the aching and throbbing type abdominal pain worse RUQ and worse after eating. Patient admits that this pain has been intermitted over the past few month bu has gotten progressively worse over the past week. Patient reports that Tuesday after eating he has severe RUQ abdominal pain assocated with bloating and nausea. Since Tuesday he has not eating much as eating makes his symtpoms worse. Patient has also noticed generalized itching, dark urine and light colored stools. He reports subjective fevers. CBC/BMP: 08/10/17 0721 08/10/17 0721 Significant Findings Laboratory Tests Test 08/08/17 05:48 08/09/17 05:35 08/10/17 07:21 Random Glucose 272 MG/DL (74-106) 270 MG/DL (74-106) 332 MG/DL (74-106) Albumin 2.7 GM/DL (3.4-5.0) 2.8 GM/DL (3.4-5.0) 2.6 GM/DL (3.4-5.0) Alkaline Phosphatase 230 U/L (45-117) 234 U/L (45-117) 210 U/L (45-117) Aspartate Amino Transf (AST/SGOT) 67 U/L (15-37) 77 U/L (15-37) 144 U/L (15-37) Total Bilirubin 2.1 MG/DL (0.2-1.0) 1.8 MG/DL (0.2-1.0) 1.8 MG/DL (0.2-1.0) Sodium Level 134 MEQ/L (136-145) 132 MEQ/L (136-145) 129 MEQ/L (136-145) Estimat Glomerular Filtration Rate 63 ML/MIN (>89) 63 ML/MIN (>89) 49 ML/MIN (>89) Monocytes (%) (Auto) 8.8 % (0.0-8.0) Eosinophils (%) (Auto) 4.9 % (0.0-4.0) Blood Urea Nitrogen 21 MG/DL (7-18) 23 MG/DL (7-18) Alanine Aminotransferase (ALT/SGPT) 84 U/L (12-78) 105 U/L (12-78) Chloride Level 97 MEQ/L (98-107) 93 MEQ/L (98-107) Red Blood Count 4.44 MIL/MM3 (4.50-5.90) Creatinine 1.43 MG/DL (0.60-1.30) Hospital Course (1) Transaminitis - Cholelithiasis/cholecystitis - Patient present to the ER from outpatient MD office Total bilirubin 4.3, GGT 1325, AST 75, ALT 113, Alk Phos 251 - US gallbladder reveals: Cholelithiasis along with gallbladder wall thickening and reports positive sonographic Monique's sign suspicious for acute gallbladder inflammation and/or obstruction. Mild hepatomegaly with steatosis - MRCP (08/05/17) --> cholelithiasis, no CBD obstruction identified - IV zosyn (08/06 - present) - Case d/w General Surgery, Dr. Winchester (08/07). Pt went for lap myles on 08/09. - On day of d/c pt was passing flatus. tolerating the food. Abdomen still a little distended and slightly dehydrated. LFT still elevated. Also has ongoing problems with bph and urine retention. - I offered further inpatient care until he was more comfortble and stablized. He kindly refused and says he knows his body and wants to go home to "self doctor" at this point. He has f/u with GI/gen surg/PCP. Pt will resume his home doses of nph 30 bid with breakfast and dinner, regular insulin 15 units with breakfast and dinner...and 22 units with lunch. hold his statin until recheck lft with pcp/GI normalize Pt Condition on Discharge: Stable Discharge Disposition: Discharge Home Discharge Instructions DIET: Follow Instructions for: Diabetic Diet Activities you can perform: Regular-No Restrictions Follow up Referrals: Gastroenterology - 1 Week with Deepali Hogue MD PCP Follow-up - [address] berrios Surgical - 1 Week with Sid Winchester MD New Medications: Hydrocodone-Acetaminophen (Hydrocodone-Acetaminophen) 5-325 mg Tab 1-2 TAB PO Q6H PRN for PAIN, #25 TAB 0 Refills Continued Medications: Allopurinol (Allopurinol) 300 Mg Tab 300 MG PO DAILY for Gout, #30 TAB 0 Refills Carvedilol (Carvedilol) 25 Mg Tab 25 MG BID, #60 TAB 0 Refills Coenzyme Q10 (Ubidecarenone) (Coq-10) 30 Mg Cap Fish Oil-Cholecalciferol (Fish Oil + D3) 1,200-1,000 Mg-Unit Cap 1 CAP PO DAILY for Nutritional Supplement, #30 CAP 0 Refills Insulin Human NPH Inj (Novolin N Inj) 1,000 Unit/10 Ml Vial 0 SQ DIRECTED for Blood Sugar Management, #10 ML 0 Refills Sliding Scale As Directed. Insulin Human Regular Inj (Novolin R Inj) 1,000 Unit/10 Ml Vial 0 SQ DIRECTED for Blood Sugar Management, #10 ML 0 Refills Sliding Scale As Directed. Metformin (Metformin) 1,000 Mg Tab 1000 MG PO BIDPC for Blood Sugar Management, #60 TAB 0 Refills Ondansetron Odt (Zofran Odt) 4 Mg Tab 4 MG SL Q8HR PRN for Nausea/Vomiting, #10 TAB 0 Refills [place] (Serenoa Repens) (S[place] (Serenoa Repens)) 450 Mg Cap 450 MG PO DAILY, CAP 0 Refills Discontinued Medications: Atorvastatin (Atorvastatin) 10 Mg Tab 10 MG PO HS for Cholesterol Management, #30 TAB 0 Refills Metoprolol Tartrate (Metoprolol Tartrate) 25 Mg Tab 25 MG PO BID, #60 TAB 0 Refills Cb Zhang MD Aug 10, 2017 11:14
[2017-08-10 12:00] VITALS: BP 119/69; PULSE 69; RESP 17; TEMP 96.6; O2SAT 96
[2017-08-10] MEDS ORDERED: SIMETHICONE 125 MG CHEWABLE TAB PO ONE (12:00)
[2017-08-10] MEDS ORDERED: INSULIN ASPART SUPPLEMENTAL SCALE SQ SCH (12:00)
--- NOTE | 2017-08-10 12:49 | HHI.PR ---
Subjective Subjective Notes Tolerated diet today. Some bloating. Objective Vitals/I&O Vital Signs Date Time Temp Pulse Resp B/P (MAP) Pulse Ox O2 Delivery O2 Flow Rate FiO2 08/10/17 12:00 96.6 69 17 119/69 (86) 96 08/10/17 09:48 Nasal Cannula 2.00 Labs Laboratory Tests Test 08/10/17 07:21 White Blood Count 7.6 Red Blood Count 4.44 Hemoglobin 14.2 Hematocrit 40.8 Mean Corpuscular Volume 91.9 Mean Corpuscular Hemoglobin 32.0 Mean Corpuscular Hemoglobin Concent 34.9 Red Cell Distribution Width 14.5 Platelet Count 292 Mean Platelet Volume 9.6 Neutrophils (%) (Auto) 66.4 Lymphocytes (%) (Auto) 21.6 Monocytes (%) (Auto) 7.9 Eosinophils (%) (Auto) 3.3 Basophils (%) (Auto) 0.8 Neutrophils # (Auto) 5.0 Lymphocytes # (Auto) 1.6 Monocytes # (Auto) 0.6 Eosinophils # (Auto) 0.3 Basophils # (Auto) 0.1 CBC Comment DIFF FINAL Differential Comment Blood Urea Nitrogen 23 Creatinine 1.43 Random Glucose 332 Total Protein 7.0 Albumin 2.6 Calcium Level 9.0 Alkaline Phosphatase 210 Aspartate Amino Transf (AST/SGOT) 144 Alanine Aminotransferase (ALT/SGPT) 105 Total Bilirubin 1.8 Sodium Level 129 Potassium Level 5.0 Chloride Level 93 Carbon Dioxide Level 27.9 Anion Gap 8 Estimat Glomerular Filtration Rate 49 Radiology Last Impressions Chest X-Ray 08/05/17 1259 Signed Impressions: Service Date/Time: Saturday, August 05, 2017 13:11 - CONCLUSION: Minimal clinical changes left base. Mild interstitial edema. Mp Emerson MD FACR Gall Bladder Ultrasound 08/05/17 0000 Signed Impressions: Service Date/Time: Saturday, August 05, 2017 11:43 - CONCLUSION: 1. Cholelithiasis, along with mild gallbladder wall thickening and reported positive sonographic Monique's are suspicious for acute gallbladder inflammation and/or obstruction. 2. Mild hepatomegaly with steatosis. Sukhjinder Xavier MD Cholangiopancreatography MRI 08/05/17 0000 Signed Impressions: Service Date/Time: Saturday, August 05, 2017 14:30 - CONCLUSION: 1. Cholelithiasis with very trace pericholecystic fluid. Cystic duct patency is difficult to definitively verify on MRCP examination. HIDA scan may be performed if there is continued clinical concern regarding cholecystitis and cystic duct obstruction. 2. No bile duct dilatation or CBD stone/focal abnormality. 3. Mild hepatomegaly with steatosis. Sonu Alston MD Narrative Exam NAD Obese, abdomen round, post op ttp, inc c/d/i A/P Assessment and Plan 67 yo M obese male with acute cholecystitis, recent intermittent choledocholithiasis POD 1 s/p lap myles. Doing well post op. Ok for d/c home. Sid Winchester MD Aug 10, 2017 12:49
== END 2017-08-10 14:22 | disposition home or self-care (01) | DRG 418 ==
LOC: NEPE 10:59 → NEDA 13:20 → N06B 15:27
PROVIDERS: ADMIT Hospitalist; ATTEND Hospitalist
PROC: 0FT44ZZ Resection of Gallbladder, Percutaneous Endoscopic Approach (ICD-10-PCS; principal; 2017-08-09 13:00)
DX: K80.66 Calculus of gallbladder and bile duct with acute and chronic cholecystitis without obstruction (principal); K82.1 Hydrops of gallbladder; I10 Essential (primary) hypertension; E66.01 Morbid (severe) obesity due to excess calories; E11.9 Type 2 diabetes mellitus without complications; R16.0 Hepatomegaly, not elsewhere classified; E78.5 Hyperlipidemia, unspecified; L29.9 Pruritus, unspecified; R74.8 Abnormal levels of other serum enzymes; M10.9 Gout, unspecified; Z98.1 Arthrodesis status; R74.0 Nonspecific elevation of levels of transaminase and lactic acid dehydrogenase [LDH]; Z68.35 Body mass index [BMI] 35.0-35.9, adult; E86.0 Dehydration; N40.1 Benign prostatic hyperplasia with lower urinary tract symptoms; R33.8 Other retention of urine; Z79.899 Other long term (current) drug therapy; Z79.4 Long term (current) use of insulin; E80.6 Other disorders of bilirubin metabolism; M19.90 Unspecified osteoarthritis, unspecified site
CPT/HCPCS: 71045; 74181; 76377; 76705; 80053; 82140; 82948; 82977; 83690; 84439; 84443; 85025; 85610; 85730; 88304; 93005; 96365; 96375; C9113; J1815; J2270; J2370; J2405; J2543; J2710; J3010; J7030; J7042